=== PATIENT | male | born 1945 | race Hispanic/Latino ===

== ENCOUNTER 2017-05-09 06:49 | Day surgery (SDC) | payer MEDICARE ==
[2017-05-09 07:23] VITALS: BMI 33.8
--- NOTE | 2017-05-09 08:49 | CP.SDSHP ---
Same Day Surgery H & P - History Proposed Procedure: endoscopy colonosocpy Pre-Op Diagnosis: anemia, reflux, polyps - Previous Medical/Surgical History Cardiac: ASHD/CAD, Hx of CHF - Allergies Allergies: Allergies No Known Allergies Allergy (Verified 03/11/15 16:30) - Physical Exam Vital Signs: Vital Signs 05/09/17 07:50 Temperature 97.6 F Pulse Rate 59 L Respiratory 19 Rate Blood Pressure 149/62 O2 Sat by Pulse 98 Oximetry Mental Status: Alert & Oriented x3 Neuro: WNL Heart: WNL Lungs: WNL GI: WNL - {Optional Preform as Required} Abdomen: WNL - Impression Impression: polyps, gastritis, anemia - Date & Time Date: 05/09/17 Time: 08:49 Short Stay Discharge - Short Stay Discharge Admitting Diagnosis/Reason for Visit: COLONIC POLYP / DYSPHAGIA Disposition: HOME/ ROUTINE
[2017-05-09] MEDS ORDERED: Propofol 10 mg/ml Inj (20 ML) ONE (08:51)
[2017-05-09] MEDS ORDERED: Etomidate 20 mg/10ml Inj IV ONE ×2 (08:51→09:19)
[2017-05-09 09:59] VITALS: TEMP 97
[2017-05-09 15:06] VITALS: RESP 20
[2017-05-09 15:12] VITALS: BP 1116/50; PULSE 52; O2SAT 100
== END 2017-05-09 11:15 | disposition home or self-care (01) ==
LOC: C.ENDO 06:49
PROVIDERS: ATTEND Internal Medicine Gastroenterology
DX: K63.5 Polyp of colon (principal); K57.30 Diverticulosis of large intestine without perforation or abscess without bleeding; K21.0 Gastro-esophageal reflux disease with esophagitis; K29.50 Unspecified chronic gastritis without bleeding; R13.10 Dysphagia, unspecified; D50.9 Iron deficiency anemia, unspecified; K64.9 Unspecified hemorrhoids; E11.9 Type 2 diabetes mellitus without complications
CPT/HCPCS: 43239; 45385; 82948; 88305; J2001; J2704

== ENCOUNTER 2017-10-24 17:45 | Inpatient (IN) | payer MEDICARE ==
[2017-10-24] MEDS ORDERED: Naloxone 0.4 mg/ml Inj (Adult) ONE (17:58)
[2017-10-24 18:06] VITALS: BMI 32.8
[2017-10-24] MEDS ORDERED: Sodium Chloride 0.9% 1,000 ML ONE (18:06)
[2017-10-24] MEDS ORDERED: Sodium Chloride 0.9% 1,000 ML IV STA (18:07)
[2017-10-24] MEDS ORDERED: Naloxone 0.4 mg/ml Inj (Adult) IVP STA (18:07)
[2017-10-24 18:22] LABS: BASO % 0.7 % (0.0-2.0); EOS # 0.1 K/uL (0.0-0.7); EOS % 1.7 % (0.0-4.0); HEMOGLOBIN 11.7 g/dL (12.0-18.0); LYMPH # 1.2 K/uL (1.0-4.3); LYMPH % 35.3 % (20.0-40.0); MEAN CELL VOLUME 97.3 fL (80.0-94.0); MEAN CORPUSCULAR HEMOGLOBIN 33.9 pg (27.0-31.0); MEAN CORPUSCULAR HGB CONC 34.8 g/dL (33.0-37.0); MEAN PLATELET VOLUME 8.5 fL (7.2-11.7); MONO # 0.2 K/uL (0.0-0.8); MONO % 5.6 % (0.0-10.0); NEUT % 56.7 % (50.0-75.0); NRBC % 0.2 % (0.0-2.0); RBC 3.46 Mil/uL (4.40-5.90); RED CELL DISTRIBUTION WIDTH 14.7 % (11.5-14.5); WHITE BLOOD COUNT 3.4 K/uL (4.8-10.8)
[2017-10-24 18:33] LABS: ALB/GLOB RATIO 1.1 (1.0-2.1); ALBUMIN 3.8 g/dL (3.5-5.0); ALT/SGPT 35 U/L (21-72); AST/SGOT 33 U/L (17-59); BLOOD UREA NITROGEN 19 mg/dL (9-20); CALCIUM 8.8 mg/dl (8.6-10.4); GFR AFRICAN-AMERICAN > 60; GFR NON-AFRICAN AMERICAN 60
[2017-10-24 18:43] LABS: B-TYPE NATRIURETIC PEPTIDE 348 pg/mL (0-900)
--- NOTE | 2017-10-24 18:58 | CT ---
PROCEDURE: CT HEAD WITHOUT CONTRAST. HISTORY: AMS COMPARISON: Noncontrast head CT performed 03/11/15 TECHNIQUE: Axial computed tomography images were obtained through the head/brain without intravenous contrast. Radiation dose: Total exam DLP = 1556.30 MGy-cm. This CT exam was performed using one or more of the following dose reduction techniques: Automated exposure control, adjustment of the mA and/or kV according to patient size, and/or use of iterative reconstruction technique. FINDINGS: Streak artifact obscures evaluation of the skullbase. HEMORRHAGE: No intracranial hemorrhage. BRAIN: No mass effect or edema. Scattered periventricular and subcortical white matter hypodensities, which are nonspecific, but often seen with chronic microvascular ischemic disease. 5 mm hypodensity in the right brainstem, possibly lacune. VENTRICLES: No hydrocephalus. CALVARIUM: Unremarkable. PARANASAL SINUSES: Unremarkable as visualized. No significant inflammatory changes. MASTOID AIR CELLS: Unremarkable as visualized. No inflammatory changes. OTHER FINDINGS: None. IMPRESSION: Streak artifact obscures evaluation of the skullbase. Nonspecific white matter changes. 5 mm hypodensity in the right brainstem, possibly small lacune. Please note that MRI with diffusion imaging is more sensitive in the detection of acute ischemic event. Generalized atrophy.
[2017-10-24 19:52] LABS: ABG ALLEN TEST POS; ARTERIAL BLOOD GAS O2 SAT 98.8 % (95-98); ARTERIAL BLOOD GAS PCO2 46 mm/Hg (35-45); ARTERIAL BLOOD GAS PH 7.34 (7.35-7.45); ARTERIAL BLOOD GAS PO2 147 mm/Hg (80-100); ARTERIAL BLOOD GAS TCO2 26.2 mmol/L (22-28)
[2017-10-24 20:24] LABS: BARBITURATES, UR NEGATIVE (NEGATIVE); OPIATES, UR NEGATIVE (NEGATIVE); PHENCYCLIDINE, UR NEGATIVE (NEGATIVE)
[2017-10-24 20:25] LABS: URINE BILIRUBIN NEGATIVE (NEGATIVE); URINE CLARITY CLEAR (Clear); URINE COLOR YELLOW (YELLOW); URINE GLUCOSE (UA) 100 mg/dL (Normal)
[2017-10-24 20:26] LABS: URINE BLOOD NEGATIVE (NEGATIVE); URINE LEUKOCYTE ESTERASE NEG Leu/uL (Negative); URINE NITRATE NEGATIVE (NEGATIVE); URINE PROTEIN 30 mg/dL (NEGATIVE); URINE UROBILINOGEN 0.2 mg/dL (0.2-1.0)
[2017-10-24 20:30] LABS: BENZODIAZEPINES, UR POSITIVE (NEGATIVE)
--- NOTE | 2017-10-24 20:46 | C.PDOC ---
Time Seen by Provider: 10/24/17 17:53 Chief Complaint (Nursing): Altered Mental Status History Per: Patient, EMS, Family History/Exam Limitations: Clinical Condition Onset Of Symptoms: <4.5 Hours Current Symptoms Are (Timing): Still Present Usual Baseline: Alert Oriented Severity: Severe Additional History Per: Prior Records Associated Symptoms: Other (Lethargic) Past Medical History Reviewed: Historical Data, Nursing Documentation, Vital Signs Vital Signs: Last Vital Signs Temp 97.1 F L 10/24/17 18:07 Pulse 77 10/24/17 18:07 Resp 14 10/24/17 18:07 BP 88/57 L 10/24/17 18:07 Pulse Ox 98 10/24/17 18:07 - Medical History PMH: Anemia, Anxiety, CHF, Colonic Polyps, COPD, Depression, Diabetes, HTN, Hypercholesterolemia Surgical History: CABG, Coronary Stent, Endoscopy - [facility] Procedures ENDOSC POLYPECTOMY OF LG INTEST (05/26/15) ESOPHAGOGASTRODUODENOSCOPY [EGD] W/CLOSED BIOPSY (04/21/15) Family History: States: Unknown Family Hx - Social History Hx Tobacco Use: No Hx Alcohol Use: Yes Hx Substance Use: No - Immunization History Hx Tetanus Toxoid Vaccination: No Hx Influenza Vaccination: No Hx Pneumococcal Vaccination: Yes Review Of Systems Review Of Systems: ROS cannot be obtained secondary to pt's inabilty to answer questions. Physical Exam - Physical Exam Appears: Other (Lethargic. Sleeping, but briefly arrousable to painful stimuli) Skin: Normal Color, Warm, Dry Head: Atraumatic Eye(s): bilateral: PERRL, EOMI Neck: Normal ROM, No Midline Cervical Tenderness, No Step Off Deformity, Supple Cardiovascular: Rhythm Regular Respiratory: Normal Breath Sounds, No Accessory Muscle Use Gastrointestinal/Abdominal: Soft, No Tenderness Extremity: Normal ROM, No Deformity Neurological/Psych: Eyes Open With Command, Other (Moving all extremities) Pain Response: Withdraws With Pain Gait: Unable To Assess ED Course And Treatment - Laboratory Results Result Diagrams: 10/24/17 18:16 10/24/17 18:16 Interpretation Of Abnormal: Positive for Benzo ECG: Interpreted By Me, Viewed By Me ECG Rhythm: Sinus Rhythm, Nonspecific Changes Rate From EC O2 Sat by Pulse Oximetry: 98 Pulse Ox Interpretation: Normal - Radiology CXR: Interpreted by Me, Viewed By Me CXR Interpretation: Yes: No Acute Disease - CT Scan/US CT head Other Rad Studies (CT/US): Read By Radiologist, Radiology Report Reviewed CT/US Interpretation: IMPRESSION: Streak artifact obscures evaluation of the skullbase. Nonspecific white matter changes. 5 mm hypodensity in the right brainstem, possibly small lacune. Please note that MRI with diffusion imaging is more sensitive in the detection of acute ischemic event. Generalized atrophy. Progress - Interventions Interventions:: Observation, Intravenous fluid, Oxygen - Data Reviewed Data Reviewed: Lab, Diagnostic imaging, EKG, Old records - Patient Status Patient status: Unchanged - Continuity of Care Discussed patient case with:: Family-HIPPA compliant, ED Nurse, PMD - Patient Plan Patient Plan: Admission, Telemetry Medical Decision Making Medical Decision Making: Pt may have overdosed on his Xanax, but there may be another cause for his altered mental status. Will admit. Disposition Discussed With : Taurus Miranda Comment: He accepted pt on his service. Doctor Will See Patient In The: Hospital Counseled Patient/Family Regarding: Studies Performed, Diagnosis - Disposition Disposition: HOSPITALIZED Disposition Time: 20:58 Condition: GUARDED - Clinical Impression Clinical Impression: Altered mental status
--- NOTE | 2017-10-24 22:21 | CP.PCM.HP ---
History of Present Illness - History of Present Illness History of Present Illness: Chief complaint: Altered mental status History present illness: 72-year-old male with history of COPD, congestive heart failure, obstructive sleep apnea, bipolar disease, history of pneumonia in the past, history of respiratory failure, peripheral vascular disease, psoriasis, CAD, status post coronary artery bypass grafting came to the emergency room today with a altered mental status. pt found him slammed over door inside the house at 5.30pm after she came home. The stove was on. Not clear how long he was like that. IN ED he was arousable to deep stimuli. Initially he was seen by Ed and had labs and CT head negative. blood sugar normal now he is more responding. Pt daughter Aide at bed side. he takes xanax and used cpap for sleep apnea, not clear he took extra dose. He had argument with his one day ago as per her daughter.pt has h/o of depression, not clear it is intentional Past medical history: Hypertension, hypercholesterolemia, COPD, coronary artery disease, diabetes, obstructive sleep apnea, peripheral vascular disease, history of pneumonia in the past Surgical history: Patient had a coronary artery bypass grafting many years ago, also had a stenting done in the right leg Allergy: No known drug allergy Personal history: patient is to be a heavy smoker in the past to quit 5 years ago, he is currently drinking wine every night, he is still working full-time Family history: Father had a history of diabetes and hypertension mother had a history of diabetes the kids are healthy Review of systems: Patient is currently having no headache, no visual symptoms, he is complaining of some difficulty in swallowing, and he is also complaining of soreness in the mouth, multiple dental workup being done, is also complaining of some weight loss recently, no chest pain, no shortness of breath, mild cough noted, no abdominal pain at this time, no leg swelling, patient has a significant psoriasis, patient has a significant history of depression taking medication for that On examination: HEENT PERRLA, neck supple No thyromegaly was noted and no cervical adenopathy noted Chest bilateral good air entry, no wheezing or rales noted CVS regular heart sound, no murmur Abdomen soft and no organomegaly Extremities no pedal edema, no leg swelling, pedal pulses are good. 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 Patient also diabetes, But we will closely monitor the glucose level, patient is a on glucose IV solution, unlikely deep currently. Neurological evaluation may be needed. Patient is also has a history of COPD and obstructive sleep apnea noncompliant with his medications. I explained to the family regarding the condition and will follow the patient 1:1observation psyche eval Past Patient History - Past Medical History & Family History Past Medical History?: Yes - Past Social History Smoking Status: Former Smoker - CARDIAC Hx Congestive Heart Failure: Yes Hx Hypercholesterolemia: Yes Hx Hypertension: Yes - PULMONARY Hx Chronic Obstructive Pulmonary Disease (COPD): Yes - NEUROLOGICAL Hx Neurological Disorder: No - HEENT Hx HEENT Problems: No - RENAL Hx Chronic Kidney Disease: No - ENDOCRINE/METABOLIC Hx Endocrine Disorders: Yes Hx Diabetes Mellitus Type 2: Yes - HEMATOLOGICAL/ONCOLOGICAL Hx Anemia: Yes - INTEGUMENTARY Hx Dermatological Problems: Yes Hx Psoriasis: Yes - MUSCULOSKELETAL/RHEUMATOLOGICAL Hx Musculoskeletal Disorders: Yes Hx Falls: Yes Hx Unsteady Gait: Yes - GASTROINTESTINAL Hx Gastrointestinal Disorders: Yes - GENITOURINARY/GYNECOLOGICAL Hx Genitourinary Disorders: Yes Hx Incontinence: Yes (Stress Incontinence/Dribbling) - PSYCHIATRIC Hx Anxiety: Yes Hx Depression: Yes Hx Substance Use: No - SURGICAL HISTORY Hx Coronary Artery Bypass Graft: Yes Hx Coronary Stent: Yes - ANESTHESIA Hx Anesthesia: Yes Hx Anesthesia Reactions: No Hx Malignant Hyperthermia: No Meds Allergies/Adverse Reactions: Allergies Allergy/AdvReac Type Severity Reaction Status Date / Time No Known Allergies Allergy Verified 10/24/17 18:06 Results - Vital Signs Recent Vital Signs: Last Vital Signs Temp 97.1 F L 10/24/17 18:07 Pulse 63 10/24/17 21:40 Resp 16 10/24/17 21:40 BP 133/73 10/24/17 21:40 Pulse Ox 99 10/24/17 21:40 - Labs Result Diagrams: 10/24/17 18:16 10/24/17 18:16 Labs: Laboratory Results - last 24 hr 10/24/17 10/24/17 10/24/17 18:16 18:16 18:16 WBC 3.4 L RBC 3.46 L Hgb 11.7 L Hct 33.7 L MCV 97.3 H MCH 33.9 H MCHC 34.8 RDW 14.7 H Plt Count 125 L MPV 8.5 Neut % (Auto) 56.7 Lymph % (Auto) 35.3 [place] % (Auto) 5.6 Eos % (Auto) 1.7 Baso % (Auto) 0.7 Neut # (Auto) 2.0 Lymph # (Auto) 1.2 [place] # (Auto) 0.2 Eos # (Auto) 0.1 Baso # (Auto) 0.0 Differential Comment Puncture Site pCO2 pO2 HCO3 ABG pH ABG Total CO2 ABG O2 Saturation ABG Base Excess [place] Test ABG Potassium A-a O2 Difference Respiratory Index Glucose Lactate FiO2 Sodium 135 Potassium 4.6 Chloride 100 Carbon Dioxide 25 Anion Gap 15 BUN 19 Creatinine 1.2 Est GFR ( Amer) > 60 Est GFR (Non-Af Amer) 60 Random Glucose 206 H Calcium 8.8 Total Bilirubin 0.8 AST 33 ALT 35 Alkaline Phosphatase 114 Ammonia < 9 L Troponin I < 0.0120 NT-Pro-B Natriuret Pep 348 Total Protein 7.2 Albumin 3.8 Globulin 3.4 Albumin/Globulin Ratio 1.1 Arterial Blood Potassium Urine Color Urine Clarity Urine pH Ur Specific [place] Urine Protein Urine Glucose (UA) Urine Ketones Urine Blood Urine Nitrate Urine Bilirubin Urine Urobilinogen Ur Leukocyte Esterase Urine WBC (Auto) Urine RBC (Auto) Urine Opiates Screen Urine Methadone Screen Ur Barbiturates Screen Ur Phencyclidine Scrn Ur Amphetamines Screen U Benzodiazepines Scrn U Oth Cocaine Metabols U Cannabinoids Screen Alcohol, Quantitative < 10 10/24/17 10/24/17 10/24/17 19:30 20:04 20:04 WBC RBC Hgb Hct MCV MCH MCHC RDW Plt Count MPV Neut % (Auto) Lymph % (Auto) [place] % (Auto) Eos % (Auto) Baso % (Auto) Neut # (Auto) Lymph # (Auto) [place] # (Auto) Eos # (Auto) Baso # (Auto) Differential Comment Puncture Site Rra pCO2 46 H pO2 147 H HCO3 24.0 ABG pH 7.34 L ABG Total CO2 26.2 ABG O2 Saturation 98.8 H ABG Base Excess -1.3 [place] Test Pos ABG Potassium 4.1 A-a O2 Difference -5.0 Respiratory Index 0 Glucose 164 H Lactate 1.0 FiO2 28.0 Sodium 138.0 Potassium Chloride 108.0 H Carbon Dioxide Anion Gap BUN Creatinine Est GFR ( Amer) Est GFR (Non-Af Amer) Random Glucose Calcium Total Bilirubin AST ALT Alkaline Phosphatase Ammonia Troponin I NT-Pro-B Natriuret Pep Total Protein Albumin Globulin Albumin/Globulin Ratio Arterial Blood Potassium 4.1 Urine Color Yellow Urine Clarity Clear Urine pH 6.0 Ur Specific [place] 1.015 Urine Protein 30 Urine Glucose (UA) 100 Urine Ketones Negative Urine Blood Negative Urine Nitrate Negative Urine Bilirubin Negative Urine Urobilinogen 0.2 Ur Leukocyte Esterase Neg Urine WBC (Auto) < 1 Urine RBC (Auto) < 1 Urine Opiates Screen Negative Urine Methadone Screen Negative Ur Barbiturates Screen Negative Ur Phencyclidine Scrn Negative Ur Amphetamines Screen Negative U Benzodiazepines Scrn Positive U Oth Cocaine Metabols Negative U Cannabinoids Screen Negative Alcohol, Quantitative
--- NOTE | 2017-10-25 07:13 | CP.PCM.CON ---
History of Present Illness - History of Present Illness History of Present Illness: CONSULT DICTATED NEW FALL AND CHANGE IN MENTAL STATUS DROOPY LEFT EYE, LEFT HEMIPARESIS ARM > LEG - NEW NEUROPATHY AND IMBALANCE - SUB ACUTE = COLLAGEN VASC DISEASE /? CERVICAL MYELOPATHY MRI/ECHO/CAROTID/EEG CONT ANTIPLATLETS, STATIN AND ARB FOR NOW FALL PREC AND PT Past Patient History - Past Medical History & Family History Past Medical History?: Yes - Past Social History Smoking Status: Former Smoker - CARDIAC Hx Cardiac Disorders: Yes Hx Congestive Heart Failure: Yes Hx Hypercholesterolemia: Yes Hx Hypertension: Yes - PULMONARY Hx Respiratory Disorders: Yes Hx Chronic Obstructive Pulmonary Disease (COPD): Yes - NEUROLOGICAL Hx Neurological Disorder: No - HEENT Hx HEENT Problems: No - RENAL Hx Chronic Kidney Disease: No - ENDOCRINE/METABOLIC Hx Endocrine Disorders: Yes Hx Diabetes Mellitus Type 2: Yes - HEMATOLOGICAL/ONCOLOGICAL Hx Anemia: Yes - INTEGUMENTARY Hx Dermatological Problems: Yes Hx Psoriasis: Yes - MUSCULOSKELETAL/RHEUMATOLOGICAL Hx Musculoskeletal Disorders: Yes Hx Falls: Yes Hx Unsteady Gait: Yes - GASTROINTESTINAL Hx Gastrointestinal Disorders: Yes - GENITOURINARY/GYNECOLOGICAL Hx Genitourinary Disorders: Yes Hx Incontinence: Yes (Stress Incontinence/Dribbling) - PSYCHIATRIC Hx Anxiety: Yes Hx Depression: Yes Hx Substance Use: No - SURGICAL HISTORY Hx Surgeries: Yes Hx Coronary Artery Bypass Graft: Yes Hx Coronary Stent: Yes - ANESTHESIA Hx Anesthesia: Yes Hx Anesthesia Reactions: No Hx Malignant Hyperthermia: No Meds Allergies/Adverse Reactions: Allergies Allergy/AdvReac Type Severity Reaction Status Date / Time No Known Allergies Allergy Verified 10/24/17 18:06 - Medications Medications: Current Medications Carvedilol (Coreg) 6.25 mg PO Q12 [facility] Clopidogrel Bisulfate (Plavix) 75 mg PO DAILY [facility] Dextrose/Sodium Chloride (Dextrose 5%-0.9% Ns 500 Ml) 500 mls @ 40 mls/hr IV .[id number] ONE Stop: 10/25/17 10:41 Last Admin: 10/24/17 23:08 Dose: 40 mls/hr Losartan Potassium (Cozaar) 50 mg PO DAILY [facility] Pantoprazole Sodium (Protonix Ec Tab) 40 mg PO DAILY [facility] Pneumococcal Polyvalent Vaccine (Pneumovax 23 Vaccine) 0.5 ml IM .ONCE ONE Stop: 10/27/17 10:01 Rosuvastatin Calcium (Crestor) 20 mg PO HS [facility] Results - Vital Signs Recent Vital Signs: Last Vital Signs Temp 97.9 F 10/25/17 00:13 Pulse 84 10/25/17 01:00 Resp 20 10/25/17 04:50 BP 117/73 10/25/17 00:13 Pulse Ox 96 10/25/17 00:13 - Labs Result Diagrams: 10/24/17 18:16 10/24/17 18:16 Labs: Laboratory Results - last 24 hr 10/24/17 10/24/17 10/24/17 18:16 18:16 18:16 WBC 3.4 L RBC 3.46 L Hgb 11.7 L Hct 33.7 L MCV 97.3 H MCH 33.9 H MCHC 34.8 RDW 14.7 H Plt Count 125 L MPV 8.5 Neut % (Auto) 56.7 Lymph % (Auto) 35.3 [place] % (Auto) 5.6 Eos % (Auto) 1.7 Baso % (Auto) 0.7 Neut # (Auto) 2.0 Lymph # (Auto) 1.2 [place] # (Auto) 0.2 Eos # (Auto) 0.1 Baso # (Auto) 0.0 Differential Comment Puncture Site pCO2 pO2 HCO3 ABG pH ABG Total CO2 ABG O2 Saturation ABG Base Excess [place] Test ABG Potassium A-a O2 Difference Respiratory Index Glucose Lactate FiO2 Sodium 135 Potassium 4.6 Chloride 100 Carbon Dioxide 25 Anion Gap 15 BUN 19 Creatinine 1.2 Est GFR ( Amer) > 60 Est GFR (Non-Af Amer) 60 POC Glucose (mg/dL) Random Glucose 206 H Calcium 8.8 Total Bilirubin 0.8 AST 33 ALT 35 Alkaline Phosphatase 114 Ammonia < 9 L Troponin I < 0.0120 NT-Pro-B Natriuret Pep 348 Total Protein 7.2 Albumin 3.8 Globulin 3.4 Albumin/Globulin Ratio 1.1 Arterial Blood Potassium Urine Color Urine Clarity Urine pH Ur Specific [place] Urine Protein Urine Glucose (UA) Urine Ketones Urine Blood Urine Nitrate Urine Bilirubin Urine Urobilinogen Ur Leukocyte Esterase Urine WBC (Auto) Urine RBC (Auto) Urine Opiates Screen Urine Methadone Screen Ur Barbiturates Screen Ur Phencyclidine Scrn Ur Amphetamines Screen U Benzodiazepines Scrn U Oth Cocaine Metabols U Cannabinoids Screen Alcohol, Quantitative < 10 10/24/17 10/24/17 10/24/17 19:30 20:04 20:04 WBC RBC Hgb Hct MCV MCH MCHC RDW Plt Count MPV Neut % (Auto) Lymph % (Auto) [place] % (Auto) Eos % (Auto) Baso % (Auto) Neut # (Auto) Lymph # (Auto) [place] # (Auto) Eos # (Auto) Baso # (Auto) Differential Comment Puncture Site Rra pCO2 46 H pO2 147 H HCO3 24.0 ABG pH 7.34 L ABG Total CO2 26.2 ABG O2 Saturation 98.8 H ABG Base Excess -1.3 [place] Test Pos ABG Potassium 4.1 A-a O2 Difference -5.0 Respiratory Index 0 Glucose 164 H Lactate 1.0 FiO2 28.0 Sodium 138.0 Potassium Chloride 108.0 H Carbon Dioxide Anion Gap BUN Creatinine Est GFR ( Amer) Est GFR (Non-Af Amer) POC Glucose (mg/dL) Random Glucose Calcium Total Bilirubin AST ALT Alkaline Phosphatase Ammonia Troponin I NT-Pro-B Natriuret Pep Total Protein Albumin Globulin Albumin/Globulin Ratio Arterial Blood Potassium 4.1 Urine Color Yellow Urine Clarity Clear Urine pH 6.0 Ur Specific [place] 1.015 Urine Protein 30 Urine Glucose (UA) 100 Urine Ketones Negative Urine Blood Negative Urine Nitrate Negative Urine Bilirubin Negative Urine Urobilinogen 0.2 Ur Leukocyte Esterase Neg Urine WBC (Auto) < 1 Urine RBC (Auto) < 1 Urine Opiates Screen Negative Urine Methadone Screen Negative Ur Barbiturates Screen Negative Ur Phencyclidine Scrn Negative Ur Amphetamines Screen Negative U Benzodiazepines Scrn Positive U Oth Cocaine Metabols Negative U Cannabinoids Screen Negative Alcohol, Quantitative 10/24/17 10/25/17 22:48 06:29 WBC RBC Hgb Hct MCV MCH MCHC RDW Plt Count MPV Neut % (Auto) Lymph % (Auto) [place] % (Auto) Eos % (Auto) Baso % (Auto) Neut # (Auto) Lymph # (Auto) [place] # (Auto) Eos # (Auto) Baso # (Auto) Differential Comment Puncture Site pCO2 pO2 HCO3 ABG pH ABG Total CO2 ABG O2 Saturation ABG Base Excess [place] Test ABG Potassium A-a O2 Difference Respiratory Index Glucose Lactate FiO2 Sodium Potassium Chloride Carbon Dioxide Anion Gap BUN Creatinine Est GFR ( Amer) Est GFR (Non-Af Amer) POC Glucose (mg/dL) 131 H 167 H Random Glucose Calcium Total Bilirubin AST ALT Alkaline Phosphatase Ammonia Troponin I NT-Pro-B Natriuret Pep Total Protein Albumin Globulin Albumin/Globulin Ratio Arterial Blood Potassium Urine Color Urine Clarity Urine pH Ur Specific [place] Urine Protein Urine Glucose (UA) Urine Ketones Urine Blood Urine Nitrate Urine Bilirubin Urine Urobilinogen Ur Leukocyte Esterase Urine WBC (Auto) Urine RBC (Auto) Urine Opiates Screen Urine Methadone Screen Ur Barbiturates Screen Ur Phencyclidine Scrn Ur Amphetamines Screen U Benzodiazepines Scrn U Oth Cocaine Metabols U Cannabinoids Screen Alcohol, Quantitative
[2017-10-25 08:21] LABS: BASO % 0.6 % (0.0-2.0); EOS % 1.1 % (0.0-4.0); LYMPH # 1.1 K/uL (1.0-4.3); LYMPH % 28.3 % (20.0-40.0); MEAN CORPUSCULAR HEMOGLOBIN 34.2 pg (27.0-31.0); MEAN CORPUSCULAR HGB CONC 34.9 g/dL (33.0-37.0); MONO # 0.3 K/uL (0.0-0.8); MONO % 6.6 % (0.0-10.0); NEUT # 2.5 K/uL (1.8-7.0); NEUT % 63.4 % (50.0-75.0); NRBC % 0.1 % (0.0-2.0); RBC 3.51 Mil/uL (4.40-5.90); RED CELL DISTRIBUTION WIDTH 14.9 % (11.5-14.5)
[2017-10-25 08:42] LABS: ALBUMIN 3.3 g/dL (3.5-5.0); ALT/SGPT 38 U/L (21-72); AST/SGOT 26 U/L (17-59); BLOOD UREA NITROGEN 17 mg/dL (9-20); CALCIUM 8.4 mg/dl (8.6-10.4); GFR AFRICAN-AMERICAN > 60; GFR NON-AFRICAN AMERICAN > 60
--- NOTE | 2017-10-25 08:45 | RAD ---
Chest x-ray single frontal view History: Altered mental status. Comparison: 08/21/2017 Findings: Mild to moderate venous congestion. Cardiomegaly. More confluent consolidative changes in the right infrahilar region. Scattered upper lobe granulomatous changes. Status post median sternotomy. Degenerative changes in the spine. Impression: Mild to moderate venous congestion. Cardiomegaly. More confluent consolidative changes in the right infrahilar region. Scattered upper lobe granulomatous changes. Status post median sternotomy.
--- NOTE | 2017-10-25 10:35 | CON ---
DATE: 10/25/2017 ATTENDING PHYSICIAN: Taurus Miranda MD LOCATION: The patient is in room 564, bed B. REASON FOR CONSULTATION: Change in mental status. CHIEF COMPLAINT: The patient was brought into [facility] with a history of fall at home and change in mental status as per the family members. From neurologic point of view, I was called in to evaluate him for further management. HISTORY OF PRESENT ILLNESS: Mr. Radha Lopez is a 72-year-old right-handed Tristanian speaking pleasant male presenting with history of slammed on the door at home and fall at home with change in mental status. There is no quantifiable how long he has been noted at home. No history of loss of consciousness. No history of focal weakness, bowel and bladder incontinence at the scene. No history of obvious trauma to his head. No similar episodes in the past. The patient admits he has been losing balance for the last 1 year.. Tend to fall; however, no history of recent fall besides the one as above noted. No history of neck pain. No history of double vision. No history of shortness of breath. He denies any focal weakness. PAST MEDICAL HISTORY: COPD, congestive heart failure, obstructive sleep apnea with mixed pattern, bipolar disorder, history of pneumonia in the past. History of coronary artery bypass in the past with stenting. PERSONAL HISTORY: History of the patient known to be a heavy smoker and he quit 5 years ago and he is still working as full-time as per the documentation. ALLERGIES: NO KNOWN ALLERGIES. REVIEW OF SYSTEM: A 12-point system been reviewed from neuro, change in mental status. MEDICATIONS: Coreg, Cozaar, Crestor, Plavix and Protonix. PHYSICAL EXAMINATION: VITAL SIGNS: Blood pressure 117/73, mean artery pressure of 87, respiratory rate 18, temperature 97.9, pulse rate 87 regular. NECK: Supple. No carotid bruit. HEART: Sounds regular. CHEST: Fair air entry. EXTREMITIES: No edema in legs. Left leg externally rotated. SKIN: Showed psoriatic rash all over extremities, especially the joint area. NEUROLOGIC: Mental status examination, he is awake, alert, and oriented to person, place and time. Speech is clear. Naming, repetition, fluency, comprehension all within normal. Cranial nerve examination, visual field intact. Pupils reactive to light. Extraocular movement intact. Significant left eye droopy noted. He denies his droopy eyelid before. No facial sensory deficit. No facial asymmetry. Hearing is normal. Tongue is midline. Good gag. Motor examination: Outstretched hand with eyes closed, no drift noted. Power is symmetric on either side. Deep tendon reflexes, biceps, brachialis, triceps, hyperreflexic on the left side. Both ankles are absent. Plantars are upgoing on the left side. Sensory examination: Significant distal sensory motor neuropathy without affecting the large fiber. Position sense intact. Coordination: Dysmetria noted on the left side to compare with the right side. Gait is deferred at this time. WORKUP: CT of the head significant periventricular ischemic changes and some low dense area noted at the [place] on his right side. This probably new versus old. BLOOD WORKUP: WBC 3.4, hemoglobin 11.7, hematocrit 33.7, platelet 125. Sodium 135, potassium 4.6, chloride 100, bicarbonate 23, glucose of 206, ammonia 9, BNP 348. Urinalysis positive for benzos. CONCLUSION: Mr. Radha Lopez been presenting from neurological point of view; 1. New left hemiparesis associating with dysmetria and left ptosis. These all consistent with possible left lower brainstem dysfunction versus right mid brain dysfunction. This all consistent with posterior cerebral artery distribution. 2. Considering his significant history of psoriasis collagen vascular disease should be considered presenting with possible cervical myelopathy associating with significant peripheral neuropathy of the small fiber. 3. Existing chronic obstructive pulmonary disease, mixed sleep apnea to be treated appropriately. RECOMMENDATIONS: 1. The patient is requested to have MRI of the brain and neck to rule out any structural pathology. 2. Carotid Doppler/echo/EEG. 3. Physical therapy and fall precaution. 4. The patient should have followup polysomnogram to be treated his existing sleep apnea appropriately. 5. The patient will be followed closely with you. Sanjeev Pierson MD
[2017-10-25] MEDS: Pantoprazole 40 mg EC Tab PO SCH (11:37)
[2017-10-25] MEDS: Enoxaparin 40 mg Syringe SC SCH (11:40)
--- NOTE | 2017-10-25 11:40 | MRI ---
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 FINDINGS: HEMORRHAGE: None DWI: No evidence of an acute or early subacute infarction. BRAIN PARENCHYMA: No mass effect or edema. Recf-ic-dubrphei atrophy is again noted. Again seen are scattered small foci of hyperintense T2 and FLAIR signal in the white matter likely represent chronic microvascular ischemic disease. VENTRICLES: Unremarkable. No hydrocephalus. CRANIUM: Unremarkable. ORBITS: Grossly unremarkable. PARANASAL SINUSES/MASTOIDS: Clear VASCULAR SYSTEM: Skull base flow voids intact. OTHER FINDINGS: None. IMPRESSION: No evidence of acute or subacute infarction. Lebm-pn-ykdzghcz atrophy and mild chronic microvascular white matter ischemic disease. No significant interval change in the brain noted since the previous exam.
--- NOTE | 2017-10-25 11:53 | MRI ---
PROCEDURE: MR CERVICAL SPINE WITHOUT CONTRAST HISTORY: CERVICAL MYELOPATHY COMPARISON: None available. TECHNIQUE: Multiecho multiplanar sequences were performed through the cervical spine without the use of intravenous contrast. FINDINGS: Normal lordotic curvature. Craniocervical junction unremarkable. Vertebral body heights preserved. No marrow signal abnormality. There is focal narrowing of the cervical cord at the level of C4 and C5 with flattening of the anterior surface of the cord. No evidence of abnormal signal in the cervical cord to suggest edema or myelopathy. No paraspinal abnormality. C2-C3: No disc herniation, spinal canal stenosis or neural foraminal narrowing. C3-C4: No disc herniation, spinal canal stenosis or neural foraminal narrowing. C4-C5: There is moderate size disc protrusion associated with posterior ligament and facet joint hypertrophy which resulting in moderate to mildly severe spinal and bilateral neural foraminal narrowing. Moderate narrowing of the intervertebral disc is space C5-C6: Small to moderate size osteophyte disc bulge complex associated with posterior ligament hypertrophy which resulting in mmgs-mf-vhjxfthy spinal stenosis. Moderate narrowing of the intervertebral disc is space C6-C7: No disc herniation, spinal canal stenosis or neural foraminal narrowing. C7-T1: No disc herniation, spinal canal stenosis or neural foraminal narrowing. OTHER FINDINGS: None. IMPRESSION: No evidence of abnormal signal at the cervical cord to suggest acute cord compression or myelopathy Moderate size disc protrusion at C4-C5 associated with posterior ligament and facet joint hypertrophy which resulting in moderate to mildly severe spinal and neural foraminal narrowing. Small to moderate size osteophyte disc bulge complex at C5-C6 associated with posterior ligament hypertrophy which resulting in [id number] spinal stenosis. Moderate degenerative changes in the disc is space and endplate associated with osteophyte formation more prominent at C4-C5 and C5-C6.
--- NOTE | 2017-10-25 12:19 | PCM.PSYCH ---
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 This is a 73-year-old male, with 3 adult children, retired from [employer] and lives with his . Next and consultation was requested because the patient was found unconscious and he is on psych medications. The patient does not recall what had happened as he opened his eyes here in the hospital. He adamantly denies feeling suicidal or having attempted suicide. He also states that he was "okay" in general, last few weeks. He reports some "bickering" between him and his but he denies any major stressors in his life. He says he eats well, has okay energy and irregular sleep but then he states it was like this for years. The patient has generalized anxiety. He admits to drinking alcohol 2-3 glasses throughout the day but only with meals and he denies any drug use. He was prescribed Xanax 2 mg but he takes half tablet a day towards the evening or night. Patient's daughter, Aide, is also interviewed. She reports that her mother found him when she got back home, and he was unconscious but he was in the middle of cooking a meal and the stove was on. That seems unlikely for a suicide attempt... Controls Designer also asked her to count the pills and bring the bottles and she did. She confirmed that there was no Xanax or other medications missing. The patient is also on Zoloft 150 mg. She, too, acknowledges that the patient did not seem different or unusual lately. However, given his age, combination of alcohol, Xanax, Zoloft and other many medical medications may have caused this episode. On top of that the patient suffers from sleep apnea and has very irregular sleep. Past psych history: No admissions and no suicide attempts. His PCP has been prescribing the antidepressant and Xanax. Family psych history: Denied Medical history: Several conditions. Please see chart for details Current Medications: Active Medications Generic Name Dose Route Start Last Admin Trade Name Freq PRN Reason Stop Dose Admin Carvedilol 6.25 mg 10/25/17 10:00 10/25/17 11:37 Coreg PO 6.25 mg Q12 AGNIESZKA Administration Clopidogrel Bisulfate 75 mg 10/25/17 10:00 10/25/17 11:36 Plavix PO 75 mg DAILY [facility] Administration Enoxaparin Sodium 40 mg 10/25/17 10:00 Lovenox SC DAILY [facility] Losartan Potassium 50 mg 10/25/17 10:00 10/25/17 11:38 Cozaar PO 50 mg DAILY [facility] Administration Pantoprazole Sodium 40 mg 10/25/17 10:00 10/25/17 11:37 Protonix Ec Tab PO 40 mg DAILY [facility] Administration Pneumococcal Polyvalent Vaccine 0.5 ml 10/27/17 10:00 Pneumovax 23 Vaccine IM 10/27/17 10:01 .ONCE ONE Rosuvastatin Calcium 20 mg 10/25/17 22:00 Crestor PO [facility] Past Psychiatric History - Past Psychiatric History Previous Treatment History: Intensive Outpatient Pertinent Medical Hx (Current Medical&Sleep Prob, Allergies): Allergies Allergy/AdvReac Type Severity Reaction Status Date / Time No Known Allergies Allergy Verified 10/24/17 18:06 Clopidogrel [Plavix] 75 mg PO DAILY 03/11/15 Ergocalciferol (Vitamin D2) [Vitamin D2] 50,000 iu PO QWK 03/11/15 Losartan [Cozaar] 50 mg PO DAILY 03/11/15 Sertraline [Zoloft] 50 mg PO HS 03/11/15 Sertraline [Zoloft] 100 mg PO QA 03/11/15 MetFORMIN [glucoPHAGE] 500 tab PO BID 04/21/15 Alprazolam 2 mg PO DAILY 10/24/17 Atorvastatin Calcium 40 mg PO HS 10/24/17 Carvedilol [Coreg] 6.25 mg PO DAILY 10/24/17 Carvedilol [Coreg] 12.5 mg PO DAILY 10/24/17 Omeprazole 40 mg PO DAILY 10/24/17 Omeprazole 40 mg PO DAILY 10/24/17 Review of Systems - Psychiatric Psychiatric: Abnormal Sleep Pattern, Anxiety. absent: Homicidal Ideation, Hopelessness, Irritability, Suicidal Ideation Mental Status Examination - Personal Presentation Personal Presentation: Looks stated age - Affect Affect: Broad - Motor Activity Motor Activity: Calm - Reliability in Providing Information Reliability in Providing Information: Fair - Speech Speech: Organized - Mood Mood: Anxious - Formal Thought Process Formal Thought Process: No Impairment - Cognitive Functions Orientation: Person, Place, Situation, Time Sensorium: Alert Attention/Concentration: Easily distracted Estimate of Intelligence: Average Judgement: Intact, as evidence by: Insight regarding need for hospitalization Memory: Recent intact, as evidence by: Ability to recall events of the day, Remote intact, as evidenced by: Abilit to recall sig. life events - Risk Risk: Diminished functioning - Strength & Assets Inventory Strength & Assets Inventory: Family support, Cooperative - Limitations Limitations: Other DSM 5 DX - DSM 5 DSM 5 Diagnosis: ERICKSON - Recommended/Plan of Treatment Treatment Recommendations and Plan of Treatment: Decreased Xanax to 0.5 mg Trazodone 50 at bedtime for sleep Zoloft 100 mg daily Support an dpsychoed No need for 1:1 at this point but keep monitoring Referred to Dr. De Souza for outpatient psychiatric treatment 38 min
[2017-10-25 12:45] LABS: HDL CHOLESTEROL 22 mg/dL (30-70)
[2017-10-25 12:56] LABS: LDL CHOLESTEROL 52 mg/dL (0-129)
[2017-10-25 13:19] LABS: PROLACTIN 7.1 ng/mL (3.7-17.9)
[2017-10-25 14:20] LABS: FREE T4 1.01 ng/dL (0.78-2.19)
--- NOTE | 2017-10-25 15:50 | VASCLAB ---
PROCEDURE: HISTORY: assess stenosis COMPARISON: None available. TECHNIQUE: Grayscale and duplex Doppler evaluation of the cervical carotid and vertebral arteries were performed. The common carotid, carotid bifurcations and cervical Internal Carotid Artery (ICA) and proximal External Carotid Artery (ECA) were evaluated. The vertebral arteries were evaluated for gross patency and flow direction. Report prepared by Deandre Boo, BS, RVT FINDINGS: RIGHT CAROTID ARTERIES: 1. Common Carotid Artery: No significant focal plaque formation of the right common carotid artery. Maximum Peak Systolic velocity: 79 cm/sec: End-diastolic velocity 14 cm/sec. 2. Carotid Bifurcation: Calcific plaque formation. Maximum Peak Systolic velocity: 65 cm/sec: End-diastolic velocity 9 cm/sec. 3. Internal Carotid Artery: Moderate plaque formation of the right proximal ICA which does not results in hemodynamically significant stenosis. Plaque description: Calcific 3.1. Proximal Segment: Peak systolic velocity 60 cm/sec: End-diastolic velocity 19 cm/sec - % stenosis 0-15% 3.2. Middle Segment: Peak systolic velocity 68 cm/sec: End-diastolic velocity 21 cm/sec - % stenosis 0-15% 3.3. Distal Segment: Peak systolic velocity 83 cm/sec: End-diastolic velocity 21 cm/sec - % stenosis 0-15% 4. External Carotid Artery: No significant focal plaque formation. Peak systolic velocity 139 cm/sec 5. ICA/CCA Ratio: 1.1 LEFT CAROTID ARTERIES: 1. Common Carotid Artery: No significant focal plaque formation of the left common carotid artery. Maximum Peak Systolic velocity: 66 cm/sec: End-diastolic velocity 15 cm/sec. 2. Carotid Bifurcation: Calcific plaque formation. Maximum Peak Systolic velocity: 70 cm/sec: End-diastolic velocity 17 cm/sec. 3. Internal Carotid Artery: Moderate plaque formation of the left proximal ICA which does not results in hemodynamically significant stenosis. Plaque description: Calcific 3.1. Proximal Segment: Peak systolic velocity 81 cm/sec: End-diastolic velocity 17 cm/sec - % stenosis 0-15% 3.2. Middle Segment: Peak systolic velocity 78 cm/sec: End-diastolic velocity 29 cm/sec - % stenosis 0-15% 3.3. Distal Segment: Peak systolic velocity 83 cm/sec: End-diastolic velocity 26 cm/sec - % stenosis 0-15% 4. External Carotid Artery: No significant focal plaque formation. Peak systolic velocity 114 cm/sec 5. ICA/CCA Ratio: 1.3 VERTEBRAL ARTERIES: 1. Right Vertebral Artery: The right vertebral artery flow direction is antegrade. 2. Left Vertebral Artery: The left vertebral artery flow direction is antegrade. OTHER FINDINGS: 1. Right Brachial Blood pressure: mmHg. 2. Left Brachial Blood pressure: mmHg. IMPRESSION: RIGHT: Duplex scan does not suggest hemodynamically significant stenosis of the right extracranial carotid arteries. LEFT: Duplex scan does not suggest hemodynamically significant stenosis of the left extracranial carotid arteries.
--- NOTE | 2017-10-25 19:03 | CARD ---
APPROVED REPORT EXAM: Two-dimensional and M-mode echocardiogram with Doppler and color Doppler. Other Information Quality : [employer] : INDICATION CARDIO EMBOLIC SOURCE 2D DIMENSIONS IVSd1.1 (0.7-1.1cm)LVDd4.9 (3.9-5.9cm) PWd1.2 (0.7-1.1cm)LVDs3.8 (2.5-4.0cm) FS (%) 22.8 %LVEF (%)45.7 (>50%) M-Mode DIMENSIONS Left Atrium (MM)4.17 (2.5-4.0cm)Aortic Root3.28 (2.2-3.7cm) Aortic Cusp Exc.2.02 (1.5-2.0cm) Mitral Valve MV E Kzfichfw51.1cm/sMV A Mtgzqjxm90.6cm/sE/A ratio1.0 TDI E/Lateral E'0.0E/Medial E'0.0 Tricuspid Valve TR Peak [id number]/sTR Peak Gr.[id number] LEFT VENTRICLE The left ventricle is normal size. There is borderline concentric left ventricular hypertrophy. Left ventricle systolic function is mildly impaired. The Ejection Fraction is 45-50%. There is moderate to severe hypokinesis in the apical septal and apical anterior wall. Transmitral Doppler flow pattern is Grade I-abnormal relaxation pattern. Cannot rule out thrombus in left Ventricle. There is no ventricular septal defect visualized. RIGHT VENTRICLE The right ventricle is normal size. The right ventricular systolic function is normal. ATRIA The left atrium is mildly dilated. The right atrium size is normal. AORTIC VALVE The aortic valve is mildly sclerotic. The aortic valve is tri-cuspid. No aortic regurgitation is present. There is no aortic valvular stenosis. MITRAL VALVE The mitral valve is normal in structure. There is no evidence of mitral valve prolapse. Mitral regurgitation is mild. TRICUSPID VALVE The tricuspid valve is normal in structure. There is mild tricuspid regurgitation. Right ventricular systolic pressure is estimated at 30-40 mmHg. There is mild pulmonary hypertension. PULMONIC VALVE The pulmonic valve is not well visualized. There is no pulmonic valvular regurgitation. GREAT VESSELS The aortic root is normal in size. The ascending aorta is normal in size. The IVC is normal in size and collapses >50% with inspiration. <Conclusion> There is borderline concentric left ventricular hypertrophy. Left ventricle systolic function is mildly impaired. The Ejection Fraction is 45-50%. There is moderate to severe hypokinesis in the apical septal and apical anterior wall. Transmitral Doppler flow pattern is Grade I-abnormal relaxation pattern. Mitral regurgitation is mild. There is mild pulmonary hypertension.
--- NOTE | 2017-10-25 19:24 | CARD ---
APPROVED REPORT EKG Measurement Heart [id number] <Conclusion> Normal sinus rhythm Minimal voltage criteria for LVH, may be normal variant Inferior infarct, age undetermined Possible Anterior infarct, age undetermined Abnormal ECG
[2017-10-25] MEDS ORDERED: traZODone 25 mg Tab PO SCH (22:00)
[2017-10-26 02:27] VITALS: RESP 20
[2017-10-26 08:38] LABS: ALB/GLOB RATIO 1.1 (1.0-2.1); ALBUMIN 3.9 g/dL (3.5-5.0); CALCIUM 9.1 mg/dl (8.6-10.4)
[2017-10-26 08:50] LABS: BASO % 0.8 % (0.0-2.0); EOS % 0.4 % (0.0-4.0); HEMOGLOBIN 12.2 g/dL (12.0-18.0); LYMPH # 0.6 K/uL (1.0-4.3); LYMPH % 23.2 % (20.0-40.0); MEAN CELL VOLUME 96.9 fL (80.0-94.0); MEAN CORPUSCULAR HEMOGLOBIN 34.3 pg (27.0-31.0); MEAN CORPUSCULAR HGB CONC 35.4 g/dL (33.0-37.0); MEAN PLATELET VOLUME 8.4 fL (7.2-11.7); MONO # 0.2 K/uL (0.0-0.8); MONO % 8.4 % (0.0-10.0); NEUT # 1.8 K/uL (1.8-7.0); NEUT % 67.2 % (50.0-75.0); RBC 3.55 Mil/uL (4.40-5.90); RED CELL DISTRIBUTION WIDTH 14.6 % (11.5-14.5)
[2017-10-26 08:51] LABS: WHITE BLOOD COUNT 2.7 K/uL (4.8-10.8)
[2017-10-26] MEDS: Pantoprazole 40 mg EC Tab PO SCH (10:34)
[2017-10-26] MEDS: Enoxaparin 40 mg Syringe SC SCH (10:34)
[2017-10-26 15:39] VITALS: O2SAT 97
[2017-10-26 15:41] VITALS: BP 100/64; PULSE 85; TEMP 98
--- NOTE | 2017-10-26 16:51 | CP.PCM.PN ---
Subjective - Date & Time of Evaluation Date of Evaluation: 10/25/17 Objective - Vital Signs/Intake and Output Vital Signs (last 24 hours): Temp Pulse Resp BP Pulse Ox 98.0 F 85 20 100/64 97 10/26/17 15:36 10/26/17 15:36 10/26/17 15:36 10/26/17 15:36 10/26/17 15:36 - Medications Medications: Current Medications Alprazolam (Xanax) 0.5 mg PO DAILY [facility] Last Admin: 10/26/17 10:34 Dose: 0.5 mg Carvedilol (Coreg) 6.25 mg PO Q12 [facility] Last Admin: 10/26/17 10:35 Dose: Not Given Clopidogrel Bisulfate (Plavix) 75 mg PO DAILY [facility] Last Admin: 10/26/17 10:34 Dose: 75 mg Enoxaparin Sodium (Lovenox) 40 mg SC DAILY [facility] Last Admin: 10/26/17 10:34 Dose: 40 mg Lorazepam (Ativan) 0.5 mg PO DAILY PRN PRN Reason: severe anxiety Last Admin: 10/26/17 00:46 Dose: 0.5 mg Losartan Potassium (Cozaar) 50 mg PO DAILY [facility] Last Admin: 10/26/17 10:35 Dose: Not Given Pantoprazole Sodium (Protonix Ec Tab) 40 mg PO DAILY [facility] Last Admin: 10/26/17 10:34 Dose: 40 mg Pneumococcal Polyvalent Vaccine (Pneumovax 23 Vaccine) 0.5 ml IM .ONCE ONE Stop: 10/27/17 10:01 Rosuvastatin Calcium (Crestor) 20 mg PO HS [facility] Last Admin: 10/25/17 21:32 Dose: 20 mg Sertraline HCl (Zoloft) 100 mg PO DAILY [facility] Last Admin: 10/26/17 10:34 Dose: 100 mg Trazodone HCl (Desyrel) 25 mg PO HS [facility] Last Admin: 10/25/17 21:32 Dose: 25 mg - Labs Labs: 10/26/17 07:52 10/26/17 07:52
--- NOTE | 2017-10-26 16:52 | CP.PCM.DIS ---
Provider - Provider Date of Admission: 10/24/17 20:59 Attending physician: Taurus Miranda MD Hospital Course - Lab Results Lab Results: Most Recent Lab Values WBC 2.7 K/uL (4.8-10.8) L 10/26/17 07:52 RBC 3.55 Mil/uL (4.40-5.90) L 10/26/17 07:52 Hgb 12.2 g/dL (12.0-18.0) 10/26/17 07:52 Hct 34.4 % (35.0-51.0) L 10/26/17 07:52 MCV 96.9 fL (80.0-94.0) H 10/26/17 07:52 MCH 34.3 pg (27.0-31.0) H 10/26/17 07:52 MCHC 35.4 g/dL (33.0-37.0) 10/26/17 07:52 RDW 14.6 % (11.5-14.5) H 10/26/17 07:52 Plt Count 104 K/uL (130-400) L 10/26/17 07:52 MPV 8.4 fL (7.2-11.7) 10/26/17 07:52 Neut % (Auto) 67.2 % (50.0-75.0) 10/26/17 07:52 Lymph % (Auto) 23.2 % (20.0-40.0) 10/26/17 07:52 [place] % (Auto) 8.4 % (0.0-10.0) 10/26/17 07:52 Eos % (Auto) 0.4 % (0.0-4.0) 10/26/17 07:52 Baso % (Auto) 0.8 % (0.0-2.0) 10/26/17 07:52 Neut # (Auto) 1.8 K/uL (1.8-7.0) 10/26/17 07:52 Lymph # (Auto) 0.6 K/uL (1.0-4.3) L 10/26/17 07:52 [place] # (Auto) 0.2 K/uL (0.0-0.8) 10/26/17 07:52 Eos # (Auto) 0.0 K/uL (0.0-0.7) 10/26/17 07:52 Baso # (Auto) 0.0 K/uL (0.0-0.2) 10/26/17 07:52 Differential Comment 10/24/17 18:16 Puncture Site Rra 10/24/17 19:30 pCO2 46 mm/Hg (35-45) H 10/24/17 19:30 pO2 147 mm/Hg (80-100) H 10/24/17 19:30 HCO3 24.0 mmol/L (21-28) 10/24/17 19:30 ABG pH 7.34 (7.35-7.45) L 10/24/17 19:30 ABG Total CO2 26.2 mmol/L (22-28) 10/24/17 19:30 ABG O2 Saturation 98.8 % (95-98) H 10/24/17 19:30 ABG Base Excess -1.3 mmol/L (-2.0-3.0) 10/24/17 19:30 [place] Test Pos 10/24/17 19:30 ABG Potassium 4.1 mmol/L (3.6-5.2) 10/24/17 19:30 A-a O2 Difference -5.0 mm/Hg 10/24/17 19:30 Respiratory Index 0 10/24/17 19:30 Sodium 138.0 mmol/l (132-148) 10/24/17 19:30 Chloride 108.0 mmol/L (98-107) H 10/24/17 19:30 Glucose 164 mg/dl (75-110) H 10/24/17 19:30 Lactate 1.0 mmol/L (0.7-2.1) 10/24/17 19:30 FiO2 28.0 % 10/24/17 19:30 Sodium 134 mmol/L (132-148) 10/26/17 07:52 Potassium 4.1 mmol/L (3.6-5.2) 10/26/17 07:52 Chloride 96 mmol/L (98-107) L 10/26/17 07:52 Carbon Dioxide 25 mmol/L (22-30) 10/26/17 07:52 Anion Gap 17 (10-20) 10/26/17 07:52 BUN 17 mg/dL (9-20) 10/26/17 07:52 Creatinine 1.5 mg/dL (0.8-1.5) 10/26/17 07:52 Est GFR ( Amer) 56 10/26/17 07:52 Est GFR (Non-Af Amer) 46 10/26/17 07:52 POC Glucose (mg/dL) 187 mg/dL (65-110) H 10/26/17 16:14 Random Glucose 139 mg/dL (75-110) H 10/26/17 07:52 Hemoglobin A1c 7.9 % (4.2-6.5) H D 10/25/17 12:20 Calcium 9.1 mg/dl (8.6-10.4) 10/26/17 07:52 Total Bilirubin 1.5 mg/dL (0.2-1.3) H 10/26/17 07:52 AST 40 U/L (17-59) 10/26/17 07:52 ALT 34 U/L (21-72) 10/26/17 07:52 Alkaline Phosphatase 84 U/L (38-126) 10/26/17 07:52 Ammonia < 9 umol/L (9-33) L 10/25/17 13:41 Troponin I < 0.0120 ng/mL (0.00-0.120) 10/24/17 18:16 NT-Pro-B Natriuret Pep 348 pg/mL (0-900) 10/24/17 18:16 Total Protein 7.5 g/dL (6.3-8.3) 10/26/17 07:52 Albumin 3.9 g/dL (3.5-5.0) 10/26/17 07:52 Globulin 3.6 gm/dL (2.2-3.9) 10/26/17 07:52 Albumin/Globulin Ratio 1.1 (1.0-2.1) 10/26/17 07:52 Triglycerides 309 mg/dL (0-149) H D 10/25/17 12:20 Cholesterol 119 mg/dL (0-199) 10/25/17 12:20 LDL Cholesterol Direct 52 mg/dL (0-129) 10/25/17 12:20 HDL Cholesterol 22 mg/dL (30-70) L 10/25/17 12:20 Vitamin B12 > 1000 pg/mL (239-931) H 10/25/17 12:20 Homocysteine 5.6 umol/L (6.6-14.8) L 10/25/17 12:20 Free T4 1.01 ng/dL (0.78-2.19) 10/25/17 13:41 TSH 3rd Generation 2.85 mIU/L (0.46-4.68) 10/25/17 13:41 Prolactin 7.1 ng/mL (3.7-17.9) 10/25/17 12:20 Arterial Blood Potassium 4.1 mmol/L (3.6-5.2) 10/24/17 19:30 Urine Color Yellow (YELLOW) 10/24/17 20:04 Urine Clarity Clear (Clear) 10/24/17 20:04 Urine pH 6.0 (5.0-8.0) 10/24/17 20:04 Ur Specific [place] 1.015 (1.003-1.030) 10/24/17 20:04 Urine Protein 30 mg/dL (NEGATIVE) 10/24/17 20:04 Urine Glucose (UA) 100 mg/dL (Normal) 10/24/17 20:04 Urine Ketones Negative mg/dL (NEGATIVE) 10/24/17 20:04 Urine Blood Negative (NEGATIVE) 10/24/17 20:04 Urine Nitrate Negative (NEGATIVE) 10/24/17 20:04 Urine Bilirubin Negative (NEGATIVE) 10/24/17 20:04 Urine Urobilinogen 0.2 mg/dL (0.2-1.0) 10/24/17 20:04 Ur Leukocyte Esterase Neg Anca/uL (Negative) 10/24/17 20:04 Urine WBC (Auto) < 1 /hpf (0-5) 10/24/17 20:04 Urine RBC (Auto) < 1 /hpf (0-3) 10/24/17 20:04 Urine Opiates Screen Negative (NEGATIVE) 10/24/17 20:04 Urine Methadone Screen Negative (NEGATIVE) 10/24/17 20:04 Ur Barbiturates Screen Negative (NEGATIVE) 10/24/17 20:04 Ur Phencyclidine Scrn Negative (NEGATIVE) 10/24/17 20:04 Ur Amphetamines Screen Negative (NEGATIVE) 10/24/17 20:04 U Benzodiazepines Scrn Positive (NEGATIVE) 10/24/17 20:04 U Oth Cocaine Metabols Negative (NEGATIVE) 10/24/17 20:04 U Cannabinoids Screen Negative (NEGATIVE) 10/24/17 20:04 Alcohol, Quantitative < 10 mg/dl (0-10) 10/24/17 18:16 RPR Nonreactive (NONREACTIVE) 10/25/17 13:41 Discharge Plan - Follow Up Plan Condition: GUARDED Disposition: HOME/ ROUTINE Instructions: Heart Failure (DC), Pacemaker (DC), Pulmonary Edema (DC), Diabetes Mellitus Type 2 in Adults (DC), Ascites (DC), Altered Mental Status ( GEN)
[2017-10-27] MEDS ORDERED: Pneumococcal 23-Valent Vaccine IM ONE (10:00)
== END 2017-10-26 17:26 | disposition home or self-care (01) | DRG 92 ==
LOC: C.ER 17:45 → C.5S 20:59
PROVIDERS: ADMIT Internal Medicine; ATTEND Internal Medicine
DX: R27.8 Other lack of coordination (principal); G95.9 Disease of spinal cord, unspecified; E11.51 Type 2 diabetes mellitus with diabetic peripheral angiopathy without gangrene; M47.12 Other spondylosis with myelopathy, cervical region; I50.9 Heart failure, unspecified; I11.0 Hypertensive heart disease with heart failure; F41.1 Generalized anxiety disorder; J44.9 Chronic obstructive pulmonary disease, unspecified; G47.33 Obstructive sleep apnea (adult) (pediatric); I25.10 Atherosclerotic heart disease of native coronary artery without angina pectoris; Z87.891 Personal history of nicotine dependence; Z91.14 Patient's other noncompliance with medication regimen; Z95.1 Presence of aortocoronary bypass graft; H02.402 Unspecified ptosis of left eyelid; G47.31 Primary central sleep apnea

== ENCOUNTER 2017-11-15 17:25 | Inpatient (IN) | payer MEDICARE ==
[2017-11-15 17:26] VITALS: BMI 32.8
[2017-11-15] MEDS ORDERED: Sodium Chloride 0.9% 1,000 ML IV ONE ×2 (19:28→19:43)
--- NOTE | 2017-11-15 19:28 | C.PDOC ---
History Of Present Illness 72 y/o male presents to ED c/o fever, chills, and penile pain after cool thermotherapy procedure at Dr. Lin's office today. Denies abdominal pain, or n/v/d. Time Seen by Provider: 11/15/17 19:28 Chief Complaint (Nursing): Fever History Per: Patient History/Exam Limitations: no limitations Onset/Duration Of Symptoms: Hrs Current Symptoms Are (Timing): Still Present Sick Contacts (Context): None Associated Symptoms: Fever, Chills Ear Symptoms: Bilateral: None Severity: Moderate Pain Scale Rating Of: 4 Recent travel outside of the [place]: No Additional History Per: Patient Past Medical History Reviewed: Historical Data, Nursing Documentation, Vital Signs Vital Signs: Last Vital Signs Temp 98.9 F 11/16/17 04:58 Pulse 82 11/16/17 06:03 Resp 16 11/16/17 06:03 BP 96/53 L 11/16/17 06:03 Pulse Ox 95 11/16/17 06:03 - Medical History PMH: Anemia, Anxiety, Benign Prostatic Hyperplasia, CHF, Colonic Polyps, COPD, Depression, Diabetes, HTN, Hypercholesterolemia Denies: Chronic Kidney Disease Surgical History: CABG, Coronary Stent, Endoscopy - [facility] Procedures ENDOSC POLYPECTOMY OF LG INTEST (05/26/15) ESOPHAGOGASTRODUODENOSCOPY [EGD] W/CLOSED BIOPSY (04/21/15) Family History: States: Unknown Family Hx - Social History Hx Tobacco Use: No Hx Alcohol Use: Yes (Wine daily) Hx Substance Use: No - Immunization History Hx Tetanus Toxoid Vaccination: No Hx Influenza Vaccination: No Hx Pneumococcal Vaccination: Yes Review Of Systems Constitutional: Positive for: Fever, Chills Eyes: Negative for: Vision Change ENT: Negative for: Throat Pain Cardiovascular: Negative for: Chest Pain, Palpitations Respiratory: Negative for: Cough, Shortness of Breath Gastrointestinal: Negative for: Nausea, Vomiting, Abdominal Pain, Diarrhea Genitourinary: Positive for: Penile Pain. Negative for: Dysuria, Frequency, Hematuria, Penile Discharge Musculoskeletal: Negative for: Back Pain Skin: Negative for: Rash, Bruising Neurological: Negative for: Headache, Dizziness Psych: Negative for: Anxiety Physical Exam - Physical Exam Appears: Non-toxic, No Acute Distress Skin: Warm, Dry, No Rash Head: Atraumatic Eye(s): bilateral: Normal Inspection Oral Mucosa: Moist Neck: Trachea Midline, Supple Chest: Symmetrical Cardiovascular: Rhythm Regular Respiratory: No Rales, No Rhonchi, No Wheezing Gastrointestinal/Abdominal: Bowel Sounds (tympanic to percussion ), Soft, Tenderness (mild diffuse), Distention, No Guarding, No Rebound Back: No CVA Tenderness Male Genital: Other (indwelling erazo catheter draining green/blue urine, no blood at urinary meatus) Extremity: Normal ROM, Pedal Edema (trace) Extremity: Bilateral: Atraumatic Pulses: Left Dorsalis Pedis: Normal, Right Dorsalis Pedis: Normal Neurological/Psych: Oriented x3 Gait: Steady ED Course And Treatment - Laboratory Results Result Diagrams: 11/15/17 19:55 11/15/17 19:55 ECG: Interpreted By Me, Viewed By Me ECG Rhythm: Sinus Rhythm (104), Nonspecific Changes O2 Sat by Pulse Oximetry: 93 Pulse Ox Interpretation: Normal - Radiology CXR: Interpreted by Me, Viewed By Me Medical Decision Making Medical Decision Making: Plan: Blood work Urinalysis CXR/EKG Morphine, Zofran, IV fluids Disposition Discussed With DrAshley: Taurus Miranda Comment: accetped the pt on his service and took over the care Doctor Will See Patient In The: Hospital Counseled Patient/Family Regarding: Studies Performed, Diagnosis - Disposition Disposition: HOSPITALIZED Disposition Time: 19:28 Condition: FAIR Forms: [facility] ([place]aguan) - Clinical Impression Clinical Impression: Fever, UTI (urinary tract infection), Hypotension, Erazo catheter in place - Scribe Statement The provider has reviewed the documentation as recorded by the Scribfrancine Baltazar All medical record entries made by the Scribe were at my direction and personally dictated by me. I have reviewed the chart and agree that the record accurately reflects my personal performance of the history, physical exam, medical decision making, and the department course for this patient. I have also personally directed, reviewed, and agree with the discharge instructions and disposition. Decision To Admit - Pt Status Changed To: Hospital Disposition Of: Inpatient - Admit Certification Admit to Inpatient:: After my assessment, the patient will require hospitalization for at least two midnights. This is because of the severity of symptoms shown, intensity of services needed, and/or the medical risk in this patient being treated as an outpatient. - InPatient: Physician Admission Certification:: After my assessment, the patient will require hospitalization for at least two midnights. This is because of the severity of symptoms shown, intensity of services needed, and/or the medical risk in this patient being treated as an outpatient. - . Bed Request Type: Telemetry Admitting Physician: Taurus Miranda Patient Diagnosis: Fever, UTI (urinary tract infection), Hypotension, Erazo catheter in place
[2017-11-15] MEDS ORDERED: Sodium Chloride 0.9% 1,000 ML ONE (19:58)
[2017-11-15 20:00] LABS: BASO % 0.2 % (0.0-2.0); EOS % 0.3 % (0.0-4.0); HEMOGLOBIN 11.4 g/dL (12.0-18.0); LYMPH # 0.2 K/uL (1.0-4.3); LYMPH % 5.7 % (20.0-40.0); MEAN CELL VOLUME 97.1 fL (80.0-94.0); MEAN CORPUSCULAR HEMOGLOBIN 33.6 pg (27.0-31.0); MEAN CORPUSCULAR HGB CONC 34.7 g/dL (33.0-37.0); MEAN PLATELET VOLUME 8.4 fL (7.2-11.7); MONO # 0.3 K/uL (0.0-0.8); MONO % 6.9 % (0.0-10.0); NEUT # 3.2 K/uL (1.8-7.0); NEUT % 86.9 % (50.0-75.0); NRBC % 0.1 % (0.0-2.0); PLATELET COUNT 101 K/uL (130-400); RED CELL DISTRIBUTION WIDTH 14.8 % (11.5-14.5); WHITE BLOOD COUNT 3.7 K/uL (4.8-10.8)
[2017-11-15] MEDS ORDERED: Piperacillin/Tazobact 3.375 gm 100 ML IVPB STA (20:11)
[2017-11-15 20:18] LABS: ALB/GLOB RATIO 1.1 (1.0-2.1); ALBUMIN 3.7 g/dL (3.5-5.0); ALT/SGPT 25 U/L (21-72); AST/SGOT 26 U/L (17-59); BLOOD UREA NITROGEN 20 mg/dL (9-20); CALCIUM 9.5 mg/dl (8.6-10.4); GFR AFRICAN-AMERICAN > 60; GFR NON-AFRICAN AMERICAN > 60
[2017-11-15 20:24] LABS: VENOUS BLOOD GAS BASE EXCESS -17.7 mmol/L (0.0-2.0); VENOUS BLOOD GAS PCO2 34 mmHg (40-60); VENOUS BLOOD GAS PO2 55 mm/Hg (30-55); VENOUS BLOOD PH 7.11 (7.32-7.43)
[2017-11-15 20:54] LABS: BANDS 8 % (0-2); LYMPHOCYTE 13 % (20-40); MONOCYTE 5 % (0-10); NEUTROPHIL 74 % (50-75); TOTAL CELLS COUNTED 100
[2017-11-15 20:55] LABS: HYPOCHROMIC SLIGHT; PLATELET ESTIMATE NORMAL (NORMAL)
[2017-11-15] MEDS ORDERED: Gentamicin 80 mg/2mL Inj. IVPB STA (21:17)
[2017-11-15] MEDS ORDERED: GENTAMICIN IVPB ONE (21:30)
[2017-11-15] MEDS ORDERED: SODIUM CHLORIDE 0.9% IVPB ONE (21:30)
[2017-11-16 03:52] LABS: SPERM URINE FEW /hpf; URINE BACTERIA RARE (<OCC); URINE BILIRUBIN NEGATIVE (NEGATIVE); URINE BLOOD 2+ (NEGATIVE); URINE CLARITY Hazy (Clear); URINE COLOR Blue (YELLOW); URINE GLUCOSE (UA) NORMAL (Normal); URINE HYALINE CAST 0-2 /lpf (0-2); URINE LEUKOCYTE ESTERASE 1+ Leu/uL (Negative); URINE NITRATE NEGATIVE (NEGATIVE); URINE PROTEIN 2+ mg/dL (NEGATIVE); URINE UROBILINOGEN NORMAL mg/dL (0.2-1.0)
[2017-11-16] MEDS ORDERED: Sodium Chloride 0.9% 1,000 ML IV SCH ×2 (06:30→08:13)
[2017-11-16] MEDS ORDERED: cefTRIAXone IV 1 gm in Dextros 50 ML IVPB ONE (06:33)
--- NOTE | 2017-11-16 06:55 | RAD ---
Chest x-ray single frontal view History: Shortness of breath. Comparison: 10/24/2017 Findings Moderate venous congestion. Patchy bibasilar airspace opacities. Question small left pleural effusion. Status post median sternotomy and CABG. Calcification at the aortic knob. Cardiomegaly. Degenerative changes in the spine and shoulders. Impression: Moderate venous congestion. Patchy bibasilar airspace opacities. Question small left pleural effusion. Status post median sternotomy and CABG. Calcification at the aortic knob. Cardiomegaly.
[2017-11-16 07:36] LABS: BASO % 0.4 % (0.0-2.0); EOS # 0.1 K/uL (0.0-0.7); EOS % 2.2 % (0.0-4.0); HEMOGLOBIN 10.1 g/dL (12.0-18.0); LYMPH # 0.4 K/uL (1.0-4.3); LYMPH % 14.8 % (20.0-40.0); MEAN CELL VOLUME 98.4 fL (80.0-94.0); MEAN CORPUSCULAR HEMOGLOBIN 34.1 pg (27.0-31.0); MEAN CORPUSCULAR HGB CONC 34.7 g/dL (33.0-37.0); MEAN PLATELET VOLUME 8.5 fL (7.2-11.7); MONO # 0.2 K/uL (0.0-0.8); MONO % 6.5 % (0.0-10.0); NEUT % 76.1 % (50.0-75.0); NRBC % 0.1 % (0.0-2.0); RBC 2.96 Mil/uL (4.40-5.90); RED CELL DISTRIBUTION WIDTH 14.9 % (11.5-14.5); WHITE BLOOD COUNT 2.6 K/uL (4.8-10.8)
[2017-11-16] MEDS: (Novolin R) Insulin Human Regular 100 units/ml vial SC SCH ×4 (08:05→22:06)
[2017-11-16] MEDS ORDERED: Potassium Chloride 20 mEq/15 ml LIQ UD PO ONE (08:16)
[2017-11-16 09:15] LABS: ALBUMIN 3.4 g/dL (3.5-5.0); CALCIUM 8.7 mg/dl (8.6-10.4)
--- NOTE | 2017-11-16 09:41 | CP.PCM.HP ---
History of Present Illness - History of Present Illness History of Present Illness: Chief complaint: chills, fever 1 day duration History present illness: 72-year-old male with history of COPD, congestive heart failure, obstructive sleep apnea, bipolar disease, history of pneumonia in the past, history of respiratory failure, peripheral vascular disease, psoriasis, CAD, status post coronary artery bypass grafting came to the emergency room today symptoms of sudden onset of fever, chills. on the day of admission, earlier patient had urological procedure, for possible BPH, Laser type of procedure,he was doing okay during the, and following that he was sent home. While patient was at home he started having sudden onset of chills, fever. He started having shaking of all over the body. He was also having some confusion. Patient's called my office, and Dr. Garvin, and patient came to the emergency room after that. In the emergency room patient was evaluated, noted to have low-grade fever and hypotension. On he needed further hospitalization. Patient issued a significant amount of IV fluid and antibiotic. Today morning he is feeling somewhat better, still hypotensive. Patient having no chest pain, no shortness of breath, some weakness noted, burning sensation in the urine noted. He is having indwelling urinary Odonnell catheter, draining greenish urine noted. Patient was given antibiotic after the procedure, but he started having increasing symptoms. Past medical history: Hypertension, hypercholesterolemia, COPD, coronary artery disease, diabetes, obstructive sleep apnea, peripheral vascular disease, history of pneumonia in the past Surgical history: Patient had a coronary artery bypass grafting many years ago, also had a stenting done in the right leg, Urological procedure on 11/15/2017 for BPH Allergy: No known drug allergy Personal history: patient is to be a heavy smoker in the past to quit 5 years ago, he is currently drinking wine every night, he is still working full-time Family history: Father had a history of diabetes and hypertension mother had a history of diabetes the kids are healthy Review of systems: Patient is currently having no headache, no visual symptoms, he is complaining of some difficulty in swallowing, and he is also complaining of soreness in the mouth, multiple dental workup being done, is also complaining of some weight loss recently, no chest pain, no shortness of breath, mild cough noted, no abdominal pain at this time, no leg swelling, patient has a significant psoriasis, patient has a significant history of depression taking medication for that On examination: HEENT PERRLA, neck supple No thyromegaly was noted and no cervical adenopathy noted Chest bilateral good air entry, no wheezing or rales noted CVS regular heart sound, no murmur Abdomen soft and no organomegaly Extremities no pedal edema, no leg swelling, pedal pulses are good. 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 WBC is normal, but the left shift noted a bands present. Renal functions are normal chest x-ray nonspecific Assessment/recommendation: 70-year-old male with history of multiple medical problems including hypertension, diabetes, hypercholesterolemia, CAD, status post coronary artery bypass grafting, PVD, status post a stent. the recent urological procedure, admitted now with possible severe sepsis, and bacteremia likely, no lactate. We'll start the patient on IV antibiotic, IV fluid, close monitoring of vital signs. Patient is currently stable otherwise I spoke to patient's daughter. DVT, GI prophylaxis Will follow the patient. Cultures are pending. Urology consultation Present on Admission - Present on Admission Any Indicators Present on Admission: No History of DVT/PE: No History of Uncontrolled Diabetes: No Urinary Catheter: No Decubitus Ulcer Present: No Past Patient History - Past Medical History & Family History Past Medical History?: Yes - Past Social History Smoking Status: Former Smoker - CARDIAC Hx Congestive Heart Failure: Yes Hx Hypercholesterolemia: Yes Hx Hypertension: Yes - PULMONARY Hx Chronic Obstructive Pulmonary Disease (COPD): Yes - NEUROLOGICAL Hx Neurological Disorder: No - HEENT Hx HEENT Problems: No - RENAL Hx Chronic Kidney Disease: No - ENDOCRINE/METABOLIC Hx Endocrine Disorders: Yes Hx Diabetes Mellitus Type 2: Yes - HEMATOLOGICAL/ONCOLOGICAL Hx Anemia: Yes - INTEGUMENTARY Hx Dermatological Problems: Yes Hx Psoriasis: Yes - MUSCULOSKELETAL/RHEUMATOLOGICAL Hx Musculoskeletal Disorders: Yes Hx Falls: Yes Hx Unsteady Gait: Yes - GASTROINTESTINAL Hx Gastrointestinal Disorders: Yes - GENITOURINARY/GYNECOLOGICAL Hx Genitourinary Disorders: Yes Hx Incontinence: Yes (Stress Incontinence/Dribbling) - PSYCHIATRIC Hx Anxiety: Yes Hx Depression: Yes Hx Substance Use: No - SURGICAL HISTORY Hx Coronary Artery Bypass Graft: Yes Hx Coronary Stent: Yes - ANESTHESIA Hx Anesthesia: Yes Hx Anesthesia Reactions: No Hx Malignant Hyperthermia: No Meds Allergies/Adverse Reactions: Allergies Allergy/AdvReac Type Severity Reaction Status Date / Time No Known Allergies Allergy Verified 11/15/17 17:56 Results - Vital Signs Recent Vital Signs: Last Vital Signs Temp 98.7 F 11/16/17 08:03 Pulse 83 11/16/17 08:03 Resp 19 11/16/17 08:03 BP 76/42 L 11/16/17 08:03 Pulse Ox 99 11/16/17 08:03 - Labs Result Diagrams: 11/16/17 07:35 11/16/17 07:27 Labs: Laboratory Results - last 24 hr 11/15/17 11/15/17 11/15/17 17:55 19:55 19:55 WBC 3.7 L RBC 3.40 L Hgb 11.4 L Hct 33.0 L MCV 97.1 H MCH 33.6 H MCHC 34.7 RDW 14.8 H Plt Count 101 L MPV 8.4 Neut % (Auto) 86.9 H Lymph % (Auto) 5.7 L [place] % (Auto) 6.9 Eos % (Auto) 0.3 Baso % (Auto) 0.2 Neut # (Auto) 3.2 Lymph # (Auto) 0.2 L [place] # (Auto) 0.3 Eos # (Auto) 0.0 Baso # (Auto) 0.0 Neutrophils % (Manual) 74 Band Neutrophils % 8 H Lymphocytes % (Manual) 13 L Monocytes % (Manual) 5 Platelet Estimate Normal Hypochromasia (manual) Slight pO2 55 VBG pH 7.11 L* VBG pCO2 34 L VBG HCO3 10.5 VBG Total CO2 11.8 L VBG O2 Sat (Calc) 89.7 H VBG Base Excess -17.7 L VBG Potassium 1.6 L* Sodium 151.0 H 133 Chloride 107.0 97 L Glucose 95 Lactate 1.3 Crit Value Called To Er nurse Crit Value Called By Bear veterinary bacteriologist Crit Value Read Back Y Blood Gas Notified Time 2023 Potassium 3.9 Carbon Dioxide 23 Anion Gap 17 BUN 20 Creatinine 1.1 Est GFR ( Amer) > 60 Est GFR (Non-Af Amer) > 60 POC Glucose (mg/dL) Random Glucose 195 H Calcium 9.5 Total Bilirubin 1.0 AST 26 ALT 25 Alkaline Phosphatase 108 Total Protein 7.3 Albumin 3.7 Globulin 3.5 Albumin/Globulin Ratio 1.1 Venous Blood Potassium 1.6 L* Urine Color Urine Clarity Urine pH Ur Specific [place] Urine Protein Urine Glucose (UA) Urine Ketones Urine Blood Urine Nitrate Urine Bilirubin Urine Urobilinogen Ur Leukocyte Esterase Urine WBC (Auto) Urine RBC (Auto) Urine Bacteria Hyaline Casts Urine Sperm (Auto) 11/16/17 11/16/17 11/16/17 00:50 03:37 07:27 WBC RBC Hgb Hct MCV MCH MCHC RDW Plt Count MPV Neut % (Auto) Lymph % (Auto) [place] % (Auto) Eos % (Auto) Baso % (Auto) Neut # (Auto) Lymph # (Auto) [place] # (Auto) Eos # (Auto) Baso # (Auto) Neutrophils % (Manual) Band Neutrophils % Lymphocytes % (Manual) Monocytes % (Manual) Platelet Estimate Hypochromasia (manual) pO2 VBG pH VBG pCO2 VBG HCO3 VBG Total CO2 VBG O2 Sat (Calc) VBG Base Excess VBG Potassium Sodium 136 Chloride 100 Glucose Lactate Crit Value Called To Crit Value Called By Crit Value Read Back Blood Gas Notified Time Potassium 4.3 Carbon Dioxide 25 Anion Gap 15 BUN 23 H Creatinine 1.5 Est GFR ( Amer) 56 Est GFR (Non-Af Amer) 46 POC Glucose (mg/dL) 158 H Random Glucose 134 H Calcium 8.7 Total Bilirubin 0.9 AST 28 ALT 24 Alkaline Phosphatase 66 Total Protein 6.8 Albumin 3.4 L Globulin 3.4 Albumin/Globulin Ratio 1.0 Venous Blood Potassium Urine Color Blue Urine Clarity Hazy Urine pH 5.0 Ur Specific [place] 1.017 Urine Protein 2+ H Urine Glucose (UA) Normal Urine Ketones Negative Urine Blood 2+ H Urine Nitrate Negative Urine Bilirubin Negative Urine Urobilinogen Normal Ur Leukocyte Esterase 1+ H Urine WBC (Auto) 35 H Urine RBC (Auto) 121 H Urine Bacteria Rare Hyaline Casts 0-2 Urine Sperm (Auto) Few H 11/16/17 11/16/17 07:35 07:55 WBC 2.6 L RBC 2.96 L Hgb 10.1 L Hct 29.1 L MCV 98.4 H MCH 34.1 H MCHC 34.7 RDW 14.9 H Plt Count 82 L MPV 8.5 Neut % (Auto) 76.1 H Lymph % (Auto) 14.8 L [place] % (Auto) 6.5 Eos % (Auto) 2.2 Baso % (Auto) 0.4 Neut # (Auto) 2.0 Lymph # (Auto) 0.4 L [place] # (Auto) 0.2 Eos # (Auto) 0.1 Baso # (Auto) 0.0 Neutrophils % (Manual) Band Neutrophils % Lymphocytes % (Manual) Monocytes % (Manual) Platelet Estimate Hypochromasia (manual) pO2 VBG pH VBG pCO2 VBG HCO3 VBG Total CO2 VBG O2 Sat (Calc) VBG Base Excess VBG Potassium Sodium Chloride Glucose Lactate Crit Value Called To Crit Value Called By Crit Value Read Back Blood Gas Notified Time Potassium Carbon Dioxide Anion Gap BUN Creatinine Est GFR ( Amer) Est GFR (Non-Af Amer) POC Glucose (mg/dL) 139 H Random Glucose Calcium Total Bilirubin AST ALT Alkaline Phosphatase Total Protein Albumin Globulin Albumin/Globulin Ratio Venous Blood Potassium Urine Color Urine Clarity Urine pH Ur Specific [place] Urine Protein Urine Glucose (UA) Urine Ketones Urine Blood Urine Nitrate Urine Bilirubin Urine Urobilinogen Ur Leukocyte Esterase Urine WBC (Auto) Urine RBC (Auto) Urine Bacteria Hyaline Casts Urine Sperm (Auto)
[2017-11-16] MEDS: Sodium Chloride 0.9% 1,000 ML IV SCH ×2 (12:05→22:22)
[2017-11-16] MEDS ORDERED: (Novolin R) Insulin Human Regular 100 units/ml vial ONE ×2 (13:01→18:19)
[2017-11-16 21:58] VITALS: RESP 20
--- NOTE | 2017-11-17 06:34 | PCM.URO ---
Urology Progress Note - Objective Lab Studies: Reviewed (dx: urinary retention and sepsis Plans: antibiotics and erazo catheter) Lab Results Last 24 Hours: Laboratory Results - last 24 hr 11/16/17 11/16/17 11/16/17 07:27 07:35 07:55 WBC 2.6 L RBC 2.96 L Hgb 10.1 L Hct 29.1 L MCV 98.4 H MCH 34.1 H MCHC 34.7 RDW 14.9 H Plt Count 82 L MPV 8.5 Neut % (Auto) 76.1 H Lymph % (Auto) 14.8 L [place] % (Auto) 6.5 Eos % (Auto) 2.2 Baso % (Auto) 0.4 Neut # (Auto) 2.0 Lymph # (Auto) 0.4 L [place] # (Auto) 0.2 Eos # (Auto) 0.1 Baso # (Auto) 0.0 Sodium 136 Potassium 4.3 Chloride 100 Carbon Dioxide 25 Anion Gap 15 BUN 23 H Creatinine 1.5 Est GFR ( Amer) 56 Est GFR (Non-Af Amer) 46 POC Glucose (mg/dL) 139 H Random Glucose 134 H Calcium 8.7 Total Bilirubin 0.9 AST 28 ALT 24 Alkaline Phosphatase 66 Total Protein 6.8 Albumin 3.4 L Globulin 3.4 Albumin/Globulin Ratio 1.0 11/16/17 11/16/17 11/16/17 12:15 18:04 22:01 WBC RBC Hgb Hct MCV MCH MCHC RDW Plt Count MPV Neut % (Auto) Lymph % (Auto) [place] % (Auto) Eos % (Auto) Baso % (Auto) Neut # (Auto) Lymph # (Auto) [place] # (Auto) Eos # (Auto) Baso # (Auto) Sodium Potassium Chloride Carbon Dioxide Anion Gap BUN Creatinine Est GFR ( Amer) Est GFR (Non-Af Amer) POC Glucose (mg/dL) 203 H 229 H 156 H Random Glucose Calcium Total Bilirubin AST ALT Alkaline Phosphatase Total Protein Albumin Globulin Albumin/Globulin Ratio Intake & Output: Intake & Output 11/16/17 11/16/17 11/17/17 06:59 18:59 06:59 Intake Total 918 Balance 918 Weight 192 lb Intake: Intake, IV Amount 800 Left Hand 800 Oral 118 Other: Voiding Method Indwelling Catheter # Bowel Movements 2 Vital Signs: Vital Signs - 24 hr 11/16/17 11/16/17 11/16/17 08:03 09:49 12:06 Temperature 98.7 F Pulse Rate 83 Respiratory 19 Rate Blood Pressure 76/42 L 86/55 L 97/56 L O2 Sat by Pulse 99 Oximetry 11/16/17 11/16/17 11/16/17 15:58 17:37 21:57 Temperature 98.9 F Pulse Rate 63 84 Respiratory 18 20 Rate Blood Pressure 93/50 L 105/48 L 107/54 L O2 Sat by Pulse Oximetry 11/16/17 11/16/17 11/17/17 22:20 23:30 00:28 Temperature 98.7 F 98.7 F Pulse Rate 80 76 84 Respiratory 20 20 Rate Blood Pressure 99/50 L 113/59 L O2 Sat by Pulse 100 96 Oximetry
[2017-11-17] MEDS: Sodium Chloride 0.9% 1,000 ML IV SCH ×3 (06:35→14:20)
[2017-11-17] MEDS: (Novolin R) Insulin Human Regular 100 units/ml vial SC SCH ×4 (08:12→21:55)
[2017-11-17 08:56] LABS: BASO % 0.5 % (0.0-2.0); EOS % 1.7 % (0.0-4.0); HEMOGLOBIN 10.7 g/dL (12.0-18.0); LYMPH # 0.8 K/uL (1.0-4.3); LYMPH % 29.7 % (20.0-40.0); MEAN CELL VOLUME 97.9 fL (80.0-94.0); MEAN CORPUSCULAR HEMOGLOBIN 33.8 pg (27.0-31.0); MEAN CORPUSCULAR HGB CONC 34.6 g/dL (33.0-37.0); MEAN PLATELET VOLUME 8.6 fL (7.2-11.7); MONO # 0.2 K/uL (0.0-0.8); MONO % 7.2 % (0.0-10.0); NEUT # 1.7 K/uL (1.8-7.0); NEUT % 60.9 % (50.0-75.0); RBC 3.17 Mil/uL (4.40-5.90); RED CELL DISTRIBUTION WIDTH 14.9 % (11.5-14.5); WHITE BLOOD COUNT 2.7 K/uL (4.8-10.8)
[2017-11-17 09:09] LABS: ALBUMIN 3.4 g/dL (3.5-5.0); ALT/SGPT 28 U/L (21-72); AST/SGOT 36 U/L (17-59); BLOOD UREA NITROGEN 16 mg/dL (9-20); CALCIUM 8.9 mg/dl (8.6-10.4); GFR AFRICAN-AMERICAN > 60; GFR NON-AFRICAN AMERICAN 60
[2017-11-17] MEDS: Pantoprazole 40 mg EC Tab PO SCH (10:32)
--- NOTE | 2017-11-17 13:08 | CP.PCM.PN ---
Subjective - Date & Time of Evaluation Date of Evaluation: 11/17/17 Time of Evaluation: 13:07 - Subjective Subjective: This morning patient is feeling much better, he was able to eat fully, no nausea vomiting noted. Odonnell catheter is still noted, and the patient is having greenish discolored urine noted. He denies any chest pain, no shortness of breath noted. Denies any dizziness. Urine output is more than adequate currently, receiving IV fluid Vital signs reviewed No neck vein distention noted Chest good air entry bilaterally, no wheezing or rales noted CVS regular heart sound, no murmur noted Abdomen soft, nontender. 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 Now admitted with a severe urinary tract infection, urosepsis, currently on antibiotic. awaiting cultures Objective - Vital Signs/Intake and Output Vital Signs (last 24 hours): Temp Pulse Resp BP Pulse Ox 97 F L 77 20 115/57 L 98 11/17/17 08:00 11/17/17 08:00 11/17/17 08:00 11/17/17 08:00 11/17/17 08:00 Intake and Output: 11/17/17 11/17/17 06:59 18:59 Intake Total 918 Balance 918 - Medications Medications: Current Medications Acetaminophen (Tylenol 325mg Tab) 650 mg PO Q6 PRN PRN Reason: Fever >100.4 F Alprazolam (Xanax) 1 mg PO HS [facility] Clopidogrel Bisulfate (Plavix) 75 mg PO DAILY [facility] Last Admin: 11/17/17 10:32 Dose: 75 mg Heparin Sodium (Porcine) (Heparin) 5,000 units SC Q8 [facility] Last Admin: 11/17/17 06:35 Dose: 5,000 units Imipenem/Cilastatin Sodium 500 (mg/ Sodium Chloride) 100 mls @ 100 mls/hr IVPB Q6H [facility] Last Admin: 11/17/17 10:32 Dose: 100 mls/hr Sodium Chloride (Sodium Chloride 0.9%) 1,000 mls @ 75 mls/hr IV .[id number] [facility] Insulin Human Regular (Novolin R) 0 unit SC ACHS [facility] PRN Reason: Protocol Last Admin: 11/17/17 08:12 Dose: 2 unit Pantoprazole Sodium (Protonix Ec Tab) 40 mg PO DAILY [facility] Last Admin: 11/17/17 10:32 Dose: 40 mg Rosuvastatin Calcium (Crestor) 10 mg PO HS [facility] Last Admin: 11/16/17 22:05 Dose: 10 mg Sertraline HCl (Zoloft) 50 mg PO DAILY [facility] - Labs Labs: 11/17/17 08:43 11/17/17 08:43
[2017-11-18] MEDS: Sodium Chloride 0.9% 1,000 ML IV SCH ×2 (03:00→08:26)
[2017-11-18] MEDS: (Novolin R) Insulin Human Regular 100 units/ml vial SC SCH ×4 (08:18→21:33)
[2017-11-18] MEDS: Pantoprazole 40 mg EC Tab PO SCH (10:20)
[2017-11-18 14:41] LABS: BASO % 0.4 % (0.0-2.0); EOS # 0.1 K/uL (0.0-0.7); EOS % 1.7 % (0.0-4.0); HEMOGLOBIN 11.2 g/dL (12.0-18.0); LYMPH # 0.7 K/uL (1.0-4.3); LYMPH % 21.7 % (20.0-40.0); MEAN CELL VOLUME 97.7 fL (80.0-94.0); MEAN CORPUSCULAR HEMOGLOBIN 33.5 pg (27.0-31.0); MEAN CORPUSCULAR HGB CONC 34.3 g/dL (33.0-37.0); MEAN PLATELET VOLUME 8.8 fL (7.2-11.7); MONO # 0.2 K/uL (0.0-0.8); MONO % 7.8 % (0.0-10.0); NEUT # 2.1 K/uL (1.8-7.0); NEUT % 68.4 % (50.0-75.0); NRBC % 0.1 % (0.0-2.0); RBC 3.33 Mil/uL (4.40-5.90); RED CELL DISTRIBUTION WIDTH 14.9 % (11.5-14.5)
[2017-11-18 14:50] LABS: URINE BACTERIA RARE (<OCC); URINE BILIRUBIN NEGATIVE (NEGATIVE); URINE BLOOD 2+ (NEGATIVE); URINE CLARITY Clear (Clear); URINE COLOR Yellow (YELLOW); URINE GLUCOSE (UA) 1+ mg/dL (Normal); URINE LEUKOCYTE ESTERASE TRACE Leu/uL (Negative); URINE NITRATE NEGATIVE (NEGATIVE); URINE PROTEIN 2+ mg/dL (NEGATIVE); URINE UROBILINOGEN NORMAL mg/dL (0.2-1.0)
--- NOTE | 2017-11-18 14:52 | CP.PCM.PN ---
Subjective - Date & Time of Evaluation Date of Evaluation: 11/18/17 Time of Evaluation: 14:30 - Subjective Subjective: The patient today feeling much better. Minimal discomfort in the Odonnell catheter in noted. Patient is eating well, no diarrhea. Dark stools noted. Stool guaiac is currently pending. Labs ordered today currently pending Vital signs stable. Elevation of the blood pressure noted, will discontinue the IV fluid Vital signs reviewed No neck vein distention noted Chest good air entry bilaterally, no wheezing or rales noted CVS regular heart sound, no murmur noted Abdomen soft, nontender. 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 Currently on imipenem. urinalysis, and a repeat urine culture. if Urologist is okay, will discontinue the Odonnell catheter today. We will attempt to help spontaneous voiding trial. If he is stable, he can be discharged when even today evening, otherwise tomorrow morning. Objective - Vital Signs/Intake and Output Vital Signs (last 24 hours): Temp Pulse Resp BP Pulse Ox 98.1 F 62 20 127/73 95 11/17/17 15:00 11/17/17 15:52 11/17/17 15:00 11/17/17 15:00 11/17/17 15:00 Intake and Output: 11/18/17 11/18/17 06:59 18:59 Intake Total 320 Output Total 2800 Balance -2480 - Medications Medications: Current Medications Acetaminophen (Tylenol 325mg Tab) 650 mg PO Q6 PRN PRN Reason: Fever >100.4 F Alprazolam (Xanax) 1 mg PO HS [facility] Last Admin: 11/17/17 21:23 Dose: 1 mg Clopidogrel Bisulfate (Plavix) 75 mg PO DAILY [facility] Last Admin: 11/18/17 10:20 Dose: 75 mg Heparin Sodium (Porcine) (Heparin) 5,000 units SC Q8 [facility] Last Admin: 11/18/17 14:05 Dose: 5,000 units Imipenem/Cilastatin Sodium 500 (mg/ Sodium Chloride) 100 mls @ 100 mls/hr IVPB Q6H [facility] Last Admin: 02/26/18 10:30 Dose: 100 mls/hr Insulin Human Regular (Novolin R) 0 unit SC ACHS [facility] PRN Reason: Protocol Last Admin: 11/18/17 12:30 Dose: 2 unit Pantoprazole Sodium (Protonix Ec Tab) 40 mg PO DAILY [facility] Last Admin: 11/18/17 10:20 Dose: 40 mg Rosuvastatin Calcium (Crestor) 10 mg PO HS [facility] Last Admin: 11/17/17 21:23 Dose: 10 mg Sertraline HCl (Zoloft) 50 mg PO DAILY [facility] Last Admin: 11/18/17 10:25 Dose: 50 mg - Labs Labs: 11/17/17 08:43 11/17/17 08:43
[2017-11-18 15:14] LABS: ALB/GLOB RATIO 0.9 (1.0-2.1); ALBUMIN 3.8 g/dL (3.5-5.0); ALT/SGPT 31 U/L (21-72); AST/SGOT 28 U/L (17-59); BLOOD UREA NITROGEN 15 mg/dL (9-20); CALCIUM 9.2 mg/dl (8.6-10.4); GFR AFRICAN-AMERICAN > 60; GFR NON-AFRICAN AMERICAN 60
--- NOTE | 2017-11-18 15:59 | PCM.URO ---
Urology Progress Note - Objective Lab Studies: Reviewed (plans: trial of void) Lab Results Last 24 Hours: Laboratory Results - last 24 hr 11/17/17 11/17/17 11/17/17 12:12 16:40 21:31 WBC RBC Hgb Hct MCV MCH MCHC RDW Plt Count MPV Neut % (Auto) Lymph % (Auto) [place] % (Auto) Eos % (Auto) Baso % (Auto) Neut # (Auto) Lymph # (Auto) [place] # (Auto) Eos # (Auto) Baso # (Auto) Sodium Potassium Chloride Carbon Dioxide Anion Gap BUN Creatinine Est GFR ( Amer) Est GFR (Non-Af Amer) POC Glucose (mg/dL) 215 H 266 H 178 H Random Glucose Calcium Total Bilirubin AST ALT Alkaline Phosphatase Total Protein Albumin Globulin Albumin/Globulin Ratio Urine Color Urine Clarity Urine pH Ur Specific [place] Urine Protein Urine Glucose (UA) Urine Ketones Urine Blood Urine Nitrate Urine Bilirubin Urine Urobilinogen Ur Leukocyte Esterase Urine WBC (Auto) Urine RBC (Auto) Urine Bacteria 11/18/17 11/18/17 11/18/17 06:17 14:36 14:36 WBC 3.0 L RBC 3.33 L Hgb 11.2 L Hct 32.6 L MCV 97.7 H MCH 33.5 H MCHC 34.3 RDW 14.9 H Plt Count 101 L MPV 8.8 Neut % (Auto) 68.4 Lymph % (Auto) 21.7 [place] % (Auto) 7.8 Eos % (Auto) 1.7 Baso % (Auto) 0.4 Neut # (Auto) 2.1 Lymph # (Auto) 0.7 L [place] # (Auto) 0.2 Eos # (Auto) 0.1 Baso # (Auto) 0.0 Sodium 134 Potassium 4.2 Chloride 96 L Carbon Dioxide 26 Anion Gap 16 BUN 15 Creatinine 1.2 Est GFR ( Amer) > 60 Est GFR (Non-Af Amer) 60 POC Glucose (mg/dL) 174 H Random Glucose 245 H Calcium 9.2 Total Bilirubin 0.9 AST 28 ALT 31 Alkaline Phosphatase 81 Total Protein 7.9 Albumin 3.8 Globulin 4.1 H Albumin/Globulin Ratio 0.9 L Urine Color Urine Clarity Urine pH Ur Specific [place] Urine Protein Urine Glucose (UA) Urine Ketones Urine Blood Urine Nitrate Urine Bilirubin Urine Urobilinogen Ur Leukocyte Esterase Urine WBC (Auto) Urine RBC (Auto) Urine Bacteria 11/18/17 14:36 WBC RBC Hgb Hct MCV MCH MCHC RDW Plt Count MPV Neut % (Auto) Lymph % (Auto) [place] % (Auto) Eos % (Auto) Baso % (Auto) Neut # (Auto) Lymph # (Auto) [place] # (Auto) Eos # (Auto) Baso # (Auto) Sodium Potassium Chloride Carbon Dioxide Anion Gap BUN Creatinine Est GFR ( Amer) Est GFR (Non-Af Amer) POC Glucose (mg/dL) Random Glucose Calcium Total Bilirubin AST ALT Alkaline Phosphatase Total Protein Albumin Globulin Albumin/Globulin Ratio Urine Color Yellow Urine Clarity Clear Urine pH 5.0 Ur Specific [place] 1.012 Urine Protein 2+ H Urine Glucose (UA) 1+ H Urine Ketones Trace Urine Blood 2+ H Urine Nitrate Negative Urine Bilirubin Negative Urine Urobilinogen Normal Ur Leukocyte Esterase Trace Urine WBC (Auto) 2 Urine RBC (Auto) 17 H Urine Bacteria Rare Intake & Output: Intake & Output 11/17/17 11/18/17 11/18/17 18:59 06:59 18:59 Intake Total 1375 320 Output Total 800 2800 Balance 575 -2480 Intake: Intake, IV Amount 775 200 Left Hand 775 200 Oral 600 120 Output: Urine 800 2800 Urethral (Odonnell) 800 2800 Other: # Bowel Movements 2 1
[2017-11-19] MEDS: (Novolin R) Insulin Human Regular 100 units/ml vial SC SCH ×2 (07:53→12:30)
[2017-11-19 08:13] VITALS: BP 128/74; PULSE 76; TEMP 98; O2SAT 95
[2017-11-19] MEDS: Pantoprazole 40 mg EC Tab PO SCH (10:44)
--- NOTE | 2017-11-19 21:25 | CP.PCM.DIS ---
Provider - Provider Date of Admission: 11/16/17 06:18 Attending physician: Taurus Miranda MD Time Spent in preparation of Discharge (in minutes): 45 Hospital Course - Lab Results Lab Results: Micro Results 11/15/17 20:40 Blood Blood Culture - Preliminary NO GROWTH AFTER 4 DAYS 11/15/17 20:10 Blood Blood Culture - Preliminary NO GROWTH AFTER 4 DAYS 11/18/17 Unknown Urine Urine Culture - Final No Growth (<1,000 CFU/ML) 11/17/17 Unknown Urine,Catheterized Urine Culture - Final No Growth (<1,000 CFU/ML) Most Recent Lab Values WBC 3.0 K/uL (4.8-10.8) L 11/18/17 14:36 RBC 3.33 Mil/uL (4.40-5.90) L 11/18/17 14:36 Hgb 11.2 g/dL (12.0-18.0) L 11/18/17 14:36 Hct 32.6 % (35.0-51.0) L 11/18/17 14:36 MCV 97.7 fL (80.0-94.0) H 11/18/17 14:36 MCH 33.5 pg (27.0-31.0) H 11/18/17 14:36 MCHC 34.3 g/dL (33.0-37.0) 11/18/17 14:36 RDW 14.9 % (11.5-14.5) H 11/18/17 14:36 Plt Count 101 K/uL (130-400) L 11/18/17 14:36 MPV 8.8 fL (7.2-11.7) 11/18/17 14:36 Neut % (Auto) 68.4 % (50.0-75.0) 11/18/17 14:36 Lymph % (Auto) 21.7 % (20.0-40.0) 11/18/17 14:36 [place] % (Auto) 7.8 % (0.0-10.0) 11/18/17 14:36 Eos % (Auto) 1.7 % (0.0-4.0) 11/18/17 14:36 Baso % (Auto) 0.4 % (0.0-2.0) 11/18/17 14:36 Neut # (Auto) 2.1 K/uL (1.8-7.0) 11/18/17 14:36 Lymph # (Auto) 0.7 K/uL (1.0-4.3) L 11/18/17 14:36 [place] # (Auto) 0.2 K/uL (0.0-0.8) 11/18/17 14:36 Eos # (Auto) 0.1 K/uL (0.0-0.7) 11/18/17 14:36 Baso # (Auto) 0.0 K/uL (0.0-0.2) 11/18/17 14:36 Neutrophils % (Manual) 74 % (50-75) 11/15/17 19:55 Band Neutrophils % 8 % (0-2) H 11/15/17 19:55 Lymphocytes % (Manual) 13 % (20-40) L 11/15/17 19:55 Monocytes % (Manual) 5 % (0-10) 11/15/17 19:55 Platelet Estimate Normal (NORMAL) 11/15/17 19:55 Hypochromasia (manual) Slight 11/15/17 19:55 pO2 55 mm/Hg (30-55) 11/15/17 17:55 VBG pH 7.11 (7.32-7.43) L* 11/15/17 17:55 VBG pCO2 34 mmHg (40-60) L 11/15/17 17:55 VBG HCO3 10.5 mmol/L 11/15/17 17:55 VBG Total CO2 11.8 mmol/L (22-28) L 11/15/17 17:55 VBG O2 Sat (Calc) 89.7 % (40-65) H 11/15/17 17:55 VBG Base Excess -17.7 mmol/L (0.0-2.0) L 11/15/17 17:55 VBG Potassium 1.6 mmol/L (3.6-5.2) L* 11/15/17 17:55 Sodium 151.0 mmol/l (132-148) H 11/15/17 17:55 Chloride 107.0 mmol/L (98-107) 11/15/17 17:55 Glucose 95 mg/dl (75-110) 11/15/17 17:55 Lactate 1.3 mmol/L (0.7-2.1) 11/15/17 17:55 Crit Value Called To Er nurse 11/15/17 17:55 Crit Value Called By [place] [facility] transcriber 11/15/17 17:55 Crit Value Read Back Y 11/15/17 17:55 Blood Gas Notified Time 202311/15/17 17:55 Sodium 134 mmol/L (132-148) 11/18/17 14:36 Potassium 4.2 mmol/L (3.6-5.2) 11/18/17 14:36 Chloride 96 mmol/L (98-107) L 11/18/17 14:36 Carbon Dioxide 26 mmol/L (22-30) 11/18/17 14:36 Anion Gap 16 (10-20) 11/18/17 14:36 BUN 15 mg/dL (9-20) 11/18/17 14:36 Creatinine 1.2 mg/dL (0.8-1.5) 11/18/17 14:36 Est GFR ( Amer) > 60 11/18/17 14:36 Est GFR (Non-Af Amer) 60 11/18/17 14:36 POC Glucose (mg/dL) 277 mg/dL (65-110) H 11/19/17 11:23 Random Glucose 245 mg/dL (75-110) H 11/18/17 14:36 Calcium 9.2 mg/dl (8.6-10.4) 11/18/17 14:36 Total Bilirubin 0.9 mg/dL (0.2-1.3) 11/18/17 14:36 AST 28 U/L (17-59) 11/18/17 14:36 ALT 31 U/L (21-72) 11/18/17 14:36 Alkaline Phosphatase 81 U/L (38-126) 11/18/17 14:36 Total Protein 7.9 g/dL (6.3-8.3) 11/18/17 14:36 Albumin 3.8 g/dL (3.5-5.0) 11/18/17 14:36 Globulin 4.1 gm/dL (2.2-3.9) H 11/18/17 14:36 Albumin/Globulin Ratio 0.9 (1.0-2.1) L 11/18/17 14:36 Venous Blood Potassium 1.6 mmol/L (3.6-5.2) L* 11/15/17 17:55 Urine Color Yellow (YELLOW) 11/18/17 14:36 Urine Clarity Clear (Clear) 11/18/17 14:36 Urine pH 5.0 (5.0-8.0) 11/18/17 14:36 Ur Specific [place] 1.012 (1.003-1.030) 11/18/17 14:36 Urine Protein 2+ mg/dL (NEGATIVE) H 11/18/17 14:36 Urine Glucose (UA) 1+ mg/dL (Normal) H 11/18/17 14:36 Urine Ketones Trace mg/dL (NEGATIVE) 11/18/17 14:36 Urine Blood 2+ (NEGATIVE) H 11/18/17 14:36 Urine Nitrate Negative (NEGATIVE) 11/18/17 14:36 Urine Bilirubin Negative (NEGATIVE) 11/18/17 14:36 Urine Urobilinogen Normal mg/dL (0.2-1.0) 11/18/17 14:36 Ur Leukocyte Esterase Trace Anca/uL (Negative) 11/18/17 14:36 Urine WBC (Auto) 2 /hpf (0-5) 11/18/17 14:36 Urine RBC (Auto) 17 /hpf (0-3) H 11/18/17 14:36 Urine Bacteria Rare (<OCC) 11/18/17 14:36 Hyaline Casts 0-2 /lpf (0-2) 11/16/17 03:37 Urine Sperm (Auto) Few /hpf (NONE) H 11/16/17 03:37 Stool Occult Blood Negative (NEGATIVE) 11/18/17 22:01 - Hospital Course Hospital Course: Chief complaint: chills, fever 1 day duration History present illness: 72-year-old male with history of COPD, congestive heart failure, obstructive sleep apnea, bipolar disease, history of pneumonia in the past, history of respiratory failure, peripheral vascular disease, psoriasis, CAD, status post coronary artery bypass grafting came to the emergency room today symptoms of sudden onset of fever, chills. on the day of admission, earlier patient had urological procedure, for possible BPH, Laser type of procedure,he was doing okay during the, and following that he was sent home. While patient was at home he started having sudden onset of chills, fever. He started having shaking of all over the body. He was also having some confusion. Patient's called my office, and Dr. Garvin, and patient came to the emergency room after that. In the emergency room patient was evaluated, noted to have low-grade fever and hypotension. On he needed further hospitalization. Patient issued a significant amount of IV fluid and antibiotic. Today morning he is feeling somewhat better, still hypotensive. Patient having no chest pain, no shortness of breath, some weakness noted, burning sensation in the urine noted. He is having indwelling urinary Odonnell catheter, draining greenish urine noted. Patient was given antibiotic after the procedure, but he started having increasing symptoms. Past medical history: Hypertension, hypercholesterolemia, COPD, coronary artery disease, diabetes, obstructive sleep apnea, peripheral vascular disease, history of pneumonia in the past Surgical history: Patient had a coronary artery bypass grafting many years ago, also had a stenting done in the right leg, Urological procedure on 11/15/2017 for BPH Allergy: No known drug allergy Personal history: patient is to be a heavy smoker in the past to quit 5 years ago, he is currently drinking wine every night, he is still working full-time Family history: Father had a history of diabetes and hypertension mother had a history of diabetes the kids are healthy Review of systems: Patient is currently having no headache, no visual symptoms, he is complaining of some difficulty in swallowing, and he is also complaining of soreness in the mouth, multiple dental workup being done, is also complaining of some weight loss recently, no chest pain, no shortness of breath, mild cough noted, no abdominal pain at this time, no leg swelling, patient has a significant psoriasis, patient has a significant history of depression taking medication for that On examination: HEENT PERRLA, neck supple No thyromegaly was noted and no cervical adenopathy noted Chest bilateral good air entry, no wheezing or rales noted CVS regular heart sound, no murmur Abdomen soft and no organomegaly Extremities no pedal edema, no leg swelling, pedal pulses are good. 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 WBC is normal, but the left shift noted a bands present. Renal functions are normal chest x-ray nonspecific Assessment/recommendation: 70-year-old male with history of multiple medical problems including hypertension, diabetes, hypercholesterolemia, CAD, status post coronary artery bypass grafting, PVD, status post a stent. the recent urological procedure, admitted now with possible severe sepsis, and bacteremia likely, no lactate. We'll start the patient on IV antibiotic, IV fluid, close monitoring of vital signs. Patient is currently stable otherwise I spoke to patient's daughter. DVT, GI prophylaxis Will follow the patient. Cultures are pending. Urology consultation In the hospital: Patient was initially treated with antibiotic and intravenous fluid in the emergency room. Patient's blood pressure slowly improving. But still continues to be hypotensive. Fluid boluses was given, started on imipenem. Cultures were taken. Urology evaluation called. Patient was having Odonnell catheter. After 3 days of intravenous antibiotic patient blood pressure improved markedly. His blood sugar was also controlled well. Urine culture, urinalysis repeated one also, and also blood culture were negative CBC stable. Odonnell catheter was removed today. Patient was able to avoid normally. Patient clinically is stable, he will be discharged home today. He will follow-up in my office in 2 days. Patient will continue ciprofloxacin 250 mg bid daily for one week. Medications reviewed reconciled done. Final diagnosis: Severe systemic inflammatory reaction with hypotension. Possibly acute urinary tract infection, but the source is unclear. Status post instrumentation for prostate. Diabetes hypertension CAD COPD. We'll follow the patient Discharge Plan - Discharge Medications Prescriptions: Ciprofloxacin HCl [Cipro] 250 mg PO BID #14 tablet - Follow Up Plan Condition: FAIR Disposition: HOME/ ROUTINE Instructions: Ciprofloxacin (Systemic), Heart Healthy Diet, Heart Failure, Adult (DC), Urinary Tract Infection, Adult (DC), Sepsis, Adult (DC), Urinary Retention (DC) Additional Instructions: follow up in 2 days in my office, follow up with Doctor Lin in one week Referrals: Taurus Miranda MD [Emergency Provider] - Charles Lin MD [Staff Provider] - Laina Lin MD [Staff Provider] -
--- NOTE | 2017-11-21 23:06 | CARD ---
APPROVED REPORT EKG Measurement Heart [id number] CT [id number] <Conclusion> Sinus tachycardia Minimal voltage criteria for LVH, may be normal variant Inferior infarct, age undetermined Cannot rule out Anterior infarct, age undetermined Abnormal ECG
== END 2017-11-19 14:38 | disposition home or self-care (01) | DRG 690 ==
LOC: C.ER 17:25 → C.9E 11-16 06:18 → C.6T 11-16 21:35
PROVIDERS: ADMIT Internal Medicine; ATTEND Internal Medicine
DX: N39.0 Urinary tract infection, site not specified (principal); E11.51 Type 2 diabetes mellitus with diabetic peripheral angiopathy without gangrene; I50.9 Heart failure, unspecified; I11.0 Hypertensive heart disease with heart failure; Z87.891 Personal history of nicotine dependence; J44.9 Chronic obstructive pulmonary disease, unspecified; Z86.010 Personal history of colon polyps; N40.0 Benign prostatic hyperplasia without lower urinary tract symptoms; I25.10 Atherosclerotic heart disease of native coronary artery without angina pectoris; Z95.1 Presence of aortocoronary bypass graft; Z95.5 Presence of coronary angioplasty implant and graft; G47.33 Obstructive sleep apnea (adult) (pediatric); F31.9 Bipolar disorder, unspecified; E78.00 Pure hypercholesterolemia, unspecified

== ENCOUNTER 2019-01-15 10:22 | Outpatient (CLI) | payer MEDICARE | END 2019-01-15 10:23 | disposition home or self-care (01) | LOC: C.CTH 10:22 | DX: R91.1 Solitary pulmonary nodule (principal) ==